=== PATIENT | female | born 1950 | race Caucasian/White ===

== ENCOUNTER → 2016-10-10 | Outpatient (CLI) | payer BC ==
[~2016-10-10] MED LIST: ALBU18002 INH; ASCA500 PO; ATOR-22 PO; CLB/200 PO; DILT120C68 PO; INDA1TAB3 PO; LEVO100T7 PO; LISI-461 PO; PRM625 PO; SYN150 PO
--- NOTE | 2016-10-10 14:32 | MAMMOGRAPHY REPORT ---
BILATERAL DIGITAL SCREENING MAMMOGRAM WITH CAD: 10/10/2016 CLINICAL HISTORY: Routine screening. TECHNIQUE: Bilateral CC and MLO views were obtained. Current study was also evaluated with a Compute r Aided Detection (CAD) system. COMPARISON: Comparison is made to exams dated: 10/09/2015 mammogram, 10/15/2012 mammogram, 09/20/2011 m ammogram, 09/15/2009 mammogram, 09/16/2010 mammogram - [facility], and 09/05/2008. BREAST COMPOSITION: The tissue of both breasts is heterogeneously dense, which may obscure small mas ses. FINDINGS: There are scattered stable benign coarse and round calcifications in the right breast. The parenchymal pattern is similar to prior mammograms. No developing mass, architectural distortion or cluster of suspicious microcalcifications is seen in either breast. IMPRESSION: ACR BI-RADS CATEGORY 2: BENIGN There is no mammographic evidence of malignancy. A 1 year screening mammogram is recommended. The pa tient will receive written notification of the results. Approximately 10% of breast cancers are not detected with mammography. A negative mammographic report should not delay biopsy if a clinically suggestive mass is present. Janee Villatoro M.D. ay/:10/10/2016 14:01:18 Auto Apprentice Mechanic: Micky BRIAN(R)(M), [facility] letter sent: Normal 1/2 BI-RADS Code: ACR BI-RADS Category 2: Benign
== END | disposition home or self-care (01) ==
LOC: C.MAMM 13:43
PROVIDERS: ATTEND Physician Assistant
DX: Z12.31 Encounter for screening mammogram for malignant neoplasm of breast (principal)

== ENCOUNTER → 2017-01-04 | Outpatient (CLI) | payer BC ==
[~2017-01-04] MED LIST changes: -ASCA500 PO; +ATROPINE SULFATE 0.1 MG/ML 5ML SYR ONE; +DOBUTamine HCL 12.5 MG/ML 20 ML VIAL ONE; +METOPROLOL TARTRATE 1 MG/ML VIAL ONE; -SYN150 PO
--- NOTE | 2017-01-04 13:21 | DOBUTAMINE ECHO ---
*NOTICE TO RECEIVING CONSTITUTION PARTY AGENCY This information is strictly Confidential and protected under [place] law. [place] law prohibits you from making any further disclosure of this information unless further disclosure is expressly permitted by the written consent of the person to whom it pertains or is authorized by law. A general authorization for the release of medical or other information is not sufficient for this purpose. Hospital accepts no responsibility if the information is made available to any other person, INCLUDING THE PATIENT. Interpretation Summary * Name: TIFFANY MA Study Date: 01/04/2017 09:25 AM BP: 142/72 mmHg * Patient Location: [facility] HR: 60 * : 1950 (M/d/yyyy) Gender: Female Height: 54 in * Age: 66 yrs Ethnicity: CA Weight: 170 lb * Ordering Physician: Stalin mR * Referring Physician: Stalin Rm * Performed By: Rhea Delong RCS * * Reason For Study: Pre-Op Clearance, HTN * BSA: 1.6 m2 * -- Conclusions -- * Mild aortic regurgitation. * There is mild mitral regurgitation. * Right ventricular systolic pressure is normal. * Diagnostic dobutamine echocardiogram without evidence of inducible ischemia * Left ventricular systolic function is normal. * Grade I diastolic dysfunction, (abnormal relaxation pattern). Procedure Details * DOBUTAMINE ECHO, CPT#[id number] * ECHO COLOR FLOW, CPT #[id number] * ECHO DOPPLER, CPT #[id number] Left Ventricular Findings with Stress * Diagnostic dobutamine echocardiogram without evidence of inducible ischemia Left Ventricle * The left ventricle is normal in size. * There is normal left ventricular wall thickness. * Ejection Fraction = 65-70%. * Left ventricular systolic function is normal. * Grade I diastolic dysfunction, (abnormal relaxation pattern). * The left ventricular wall motion is normal. Right Ventricle * The right ventricle is normal in size and function. Atria * The left atrial size is normal. * Right atrial size is normal. * Cannot exclude PFO Mitral Valve * The mitral valve anatomy is normal. * There is mild mitral regurgitation. Tricuspid Valve * The tricuspid valve is not well visualized, but is grossly normal. * There is trace tricuspid regurgitation. * Right ventricular systolic pressure is normal. Aortic Valve * The aortic valve is normal in structure and function. * The aortic valve is trileaflet. * No hemodynamically significant valvular aortic stenosis. * Mild aortic regurgitation. Great Vessels * The aortic root is normal size. Pericardium * There is no pericardial effusion. Stress Parameters * Baseline EKG demonstrated normal sinus rhythm with incomplete right bundle branch block * Stress ECG: No ST changes. No arrhythmias. * The stress portion of this study was personally supervised by the undersigned interpreting physician. * Rest heart rate was '60' BPM. * Rest blood pressure was '142/72' * Maximum heart rate achieved was 146 bpm. * Maximum heart rate was 93 % of maximum age-predicted heart rate. * Maximum blood pressure was '156/64' * Maximum Dobutamine infusion rate was '50' mcg/kg/min. * A total of .5 mg of intravenous Atropine was used to supplement Dobutamine for heart rate response. * Dobutamine infusion was terminated due to achieving target heart rate * A total of 5 mg of IV Metoprolol was administered to reverse Dobutamine-induced tachycardia. * The patient did not exhibit any symptoms during drug infusion. * Normal blood pressure response to exercise. Left Ventricular Findings with Stress * The patient reported symptoms of mild dizziness during peak dobutamine infusion Baseline echocardiographic images demonstrated normal LV systolic function At peak dobutamine infusion there was normal augmentation without development of wall motion abnormalities There were no significant EKG changes during today's test Normal heart rate and blood pressure response to dobutamine infusion MMode 2D Measurements and Calculations IVSd 0.91 cm IVSs 1.3 cm LVIDd 5.1 cm LVIDs 3.2 cm LVPWd 0.83 cm LVPWs 1.3 cm IVS/LVPW 1.1 FS 37.2 % EDV(Teich) 123.8 ml ESV(Teich) 41.1 ml EF(Teich) 66.8 % EDV(cubed) 132.7 ml ESV(cubed) 32.9 ml EF(cubed) 75.2 % % IVS thick 38.9 % % LVPW thick 55.2 % LV mass(C)d 156.6 grams LV mass(C)dI 97.0 grams/m\S\2 LV mass(C)s 132.0 grams LV mass(C)sI 81.8 grams/m\S\2 SV(Teich) 82.7 ml SI(Teich) 51.3 ml/m\S\2 SV(cubed) 99.8 ml SI(cubed) 61.8 ml/m\S\2 Ao root diam 3.3 cm Ao root area 8.6 cm\S\2 ACS 1.6 cm LA dimension 3.9 cm asc Aorta Diam 3.6 cm LA/Ao 1.2 EDV(MOD-sp4) 107.4 ml ESV(MOD-sp4) 33.5 ml EF(MOD-sp4) 68.8 % EDV(MOD-sp2) 128.5 ml ESV(MOD-sp2) 41.7 ml EF(MOD-sp2) 67.6 % SV(MOD-sp4) 73.9 ml SI(MOD-sp4) 45.8 ml/m\S\2 SV(MOD-sp2) 86.9 ml SI(MOD-sp2) 53.8 ml/m\S\2 Doppler Measurements and Calculations MV E max sridhar 67.9 cm/sec MV A max sridhar 72.1 cm/sec MV E/A 0.94 MV P1/2t max sridhar 77.3 cm/sec MV P1/2t 71.7 msec MVA(P1/2t) 3.1 cm\S\2 MV dec slope 315.8 cm/sec\S\2 MV dec time 0.26 sec Ao V2 max 98.1 cm/sec Ao max PG 3.9 mmHg Ao max PG (full) -0.18 mmHg AI max sridhar 397.1 cm/sec AI max PG 63.2 mmHg AI dec slope 148.4 cm/sec\S\2 AI P1/2t 784.1 msec LV V1 max PG 4.0 mmHg LV V1 max 100.4 cm/sec PA V2 max 77.7 cm/sec PA max PG 2.4 mmHg TR max sridhar 215.5 cm/sec
== END | disposition home or self-care (01) ==
LOC: C.CPL 09:18
PROVIDERS: ATTEND Internal Medicine
DX: I10 Essential (primary) hypertension (principal)

== ENCOUNTER 2017-01-10 10:36 | Inpatient (IN) | payer BC, OTHER ==
--- NOTE | 2016-12-05 14:38 | PAT Medication Instructions ---
Service Date Dec 05, 2016. Current Home Medication List Albuterol Sulfate (Proair Respiclick), 2 PUFF INH QID PRN for Shortness of Breath Atorvastatin (Lipitor), 20 MG PO HS Celecoxib (CeleBREX), 200 MG PO BID Diltiazem Hcl Ext Rel (Tiazac), 120 MG PO QAM Estrogens, Conjugated (Premarin), 0.625 MG PO Q2D Indapamide (Lozol), 1.25 MG PO QAM Levothyroxine Sodium (Levothyroxine Sodium), 1 TAB PO QAM Lisinopril (Zestril), 10 MG PO QAM Medication Instructions For Your Scheduled Surgery - Hold the following medications the morning of surgery: Lisinopril (Zestril), 10 MG PO QAM Indapamide (Lozol), 1.25 MG PO QAM - Take the following medications the morning of surgery with a sip of water: Levothyroxine Sodium (Levothyroxine Sodium), 1 TAB PO QAM Estrogens, Conjugated (Premarin), 0.625 MG PO Q2D (okay to continue unless otherwise directed by surgeon) Diltiazem Hcl Ext Rel (Tiazac), 120 MG PO QAM Celecoxib (CeleBREX), 200 MG PO BID (okay per surgeon) Albuterol Sulfate (Proair Respiclick), 2 PUFF INH QID PRN for Shortness of Breath (if needed) - Take the following medications as scheduled the night before surgery: Celecoxib (CeleBREX), 200 MG PO BID (okay per surgeon) Albuterol Sulfate (Proair Respiclick), 2 PUFF INH QID PRN for Shortness of Breath (if needed) Atorvastatin (Lipitor), 20 MG PO HS If you have any questions please call us at [phone] or [phone] or [phone]
--- NOTE | 2017-01-07 19:55 | HISTORY & PHYSICAL EXAMINATION ---
DATE OF ADMISSION: 01/10/2017 CHIEF COMPLAINT: Left knee pain and discomfort. HISTORY OF PRESENT ILLNESS: A 66-year-old female who presents for surgical treatment of her left knee. She has got a long history of left knee pain and discomfort. She had her right knee replaced by Dr. Ariza back in January of 2008. She had a very rough course postoperatively that required manipulation. She has done pretty well since then, but has off left knee replacement as a result. The patient has become more unbearable. She has been through extensive conservative treatment. She has pain all the time. The more she walks, the more it hurts. The pain is mostly on the medial side. Temporary relief from injections only. She would like to proceed with left knee replacement. PAST MEDICAL HISTORY: Significant for: 1. Hypertension. 2. Elevated cholesterol. 3. Hypothyroidism. 4. Mild obesity. PAST SURGICAL HISTORY: Include: 1. Right knee replacement in 02/06/2008. 2. Jaw surgery. 3. Bunion surgery. 4. Hysterectomy. 5. Cholecystectomy. ALLERGIES: None. CURRENT MEDICINES: 1. Celebrex 200 mg twice a day. 2. Indapamide 1.25 mg once a day. 3. Lisinopril 10 mg a day. 4. Levothyroxine 100 mcg a day. 5. Diltiazem 120 mg a day. 6. Atorvastatin 20 mg. 7. Premarin 0.625 mg once a day. SOCIAL HISTORY: A 66-year-old female. Does not smoke. FAMILY HISTORY: Negative for diabetes, heart disease or blood clots. REVIEW OF SYSTEMS: Negative for diabetes, neurologic problems, vascular problems, bleeding disorders. Denies any chest pain or shortness of breath. No history of DVT or PE. PHYSICAL EXAMINATION: GENERAL: Reveals a healthy pleasant, middle-aged female. She looks to be in pretty good health. HEENT: Benign. NECK: Supple. No lymphadenopathy. LUNGS: Clear to auscultation. HEART: Has a regular rate and rhythm. ABDOMEN: Soft, nontender, nondistended. EXTREMITIES: Grossly neurovascularly intact except as follows: Examination of the left knee reveals the patient walks with a slight bit of a limp. She has got varus alignment to her knee. She does walk with a varus thrust. She has got bony hypertrophy medially. Range of motion is 5-10 degrees short of full extension to 120 degrees of flexion. No instability. No pain with hip motion. IMAGING DATA: X-rays of the left knee were reviewed. It shows advanced left knee DJD. She has got near complete loss of medial joint space. She has got osteophytes off the medial femoral condyle and medial tibial plateau. ASSESSMENT: A 66-year-old female 9 years out from right knee replacement with advanced left knee degenerative joint disease. She would like to proceed with left knee replacement. She has failed conservative care. PLAN: We will take her to the operating room and do a left total knee replacement. The risks and benefits of this procedure were explained to the patient including but not limited to DVT, PE, , infection, neurologic injury, vascular injury, bleeding problems, pain, limited range, failure to relieve her symptoms, incomplete relief of symptoms, need for further surgery in the future, fracture, leg length inequality, nerve palsy, etc. The patient understands and desires to proceed. Informed consent was obtained. As far as discharge plans, she is planning to be discharged to home using [facility] home health program. She will then go to [facility]. We did talk about holding the lisinopril the morning of surgery. I will see her back 2 weeks postop. WES
[2017-01-10] VITALS (8 sets, daily range): BP systolic 98–162; BP diastolic 67–95; PULSE 44–73; TEMP 36.2–36.6; O2SAT 86–98; Ht 162.6 cm; Wt 79.0 kg
[~2017-01-10] VITALS: Ht 162.6 cm; Wt 79.0 kg
[~2017-01-10 10:36] MED LIST changes: +ACETAMINOPHEN 500 MG TAB PO SCH; +ATROPINE SULFATE 0.1 MG/ML 5ML SYR IV PRN; -ATROPINE SULFATE 0.1 MG/ML 5ML SYR ONE; +BUPIVACAINE 0.25% 30 ML VIAL ONE; +BUPIVACAINE 0.5 % 5 MG/1 ML PF 10ML VIAL ONE; +BUPIVACAINE LIPOSOME 266 MG, BUPIVACAINE/EPINEPHRINE INJ 50 ML, SODIUM CHLORIDE 0.9% PF... INFIL SCH; +CEFAZOLIN 2000MG IV PUSH 10 ML IV SCH; -DOBUTamine HCL 12.5 MG/ML 20 ML VIAL ONE; +EpHEDrine SULFATE INJ 50 MG/ML AMP IV PRN; +FAMOTIDINE 20 MG TAB PO SCH; +FENTANYL CITRATE INJ 50 MCG/1 ML 2 ML VIAL IV PRN; +GABAPENTIN 300 MG CAP PO SCH; +HYDROmorphone INJ 1 MG/ML SYR IV PRN; +LABETALOL HCL IV 5 MG/ML 20ML IV PRN; +LACTATED RINGER'S 1000ML 1,000 ML IV SCH; +LACTATED RINGER'S 1000ML 500 ML IV ONE; +LACTATED RINGER'S 1000ML IV SCH; +MEPERIDINE HCL 25 MG/ML CARP IV PRN; +METOCLOPRAMIDE HCL 10 MG TAB PO SCH; -METOPROLOL TARTRATE 1 MG/ML VIAL ONE; +ONDANSETRON INJ 2 MG/ML 2 ML VIAL IV PRN; +SCOPOLAMINE 1.5 MG TDSY TD SCH; +TRAMADOL HCL 50 MG TAB PO SCH; +TRANEXAMIC ACID INJ 1,000 MG in SYRINGE 0 ML IV SCH
--- NOTE | 2017-01-10 11:09 | History & Physical Bridge Note ---
H&P Re-Evaluation Bridge Note: I have examined the patient, reviewed the History & Physical and in the interval since the performance of the History & Physical I have noted the following changes of clinical significance: No changes noted
[2017-01-10] MEDS ORDERED: BUPIVACAINE/EPINEPHRINE 0.25% 1:200,000 30 ML VIAL ONE (12:45)
[2017-01-10] MEDS ORDERED: SODIUM CHLORIDE 0.9% PF 50 ML VIAL ONE (12:45)
[2017-01-10] MEDS ORDERED: BACITRACIN 50000 UNIT VIAL ONE (12:45)
[2017-01-10] MEDS ORDERED: BUPIVACAINE LIPOSOME 1/3% 266 MG/20 ML VIAL INFIL ONE (12:45)
[2017-01-10] MEDS ORDERED: MIDAZOLAM HCL 1 MG/ML 2ML VIAL ONE (12:51)
[2017-01-10] MEDS ORDERED: FENTANYL CITRATE INJ 50 MCG/1 ML 2 ML VIAL ONE (12:52)
[2017-01-10] MEDS ORDERED: PROPOFOL IV EMULSION 10 MG/ML 20 ML VIAL IV ONE (13:50)
--- NOTE | 2017-01-10 15:17 | [facility] Post Operative Brief Note ---
Immediate Operative Summary Operative Date Jan 10, 2017. Pre-Operative Diagnosis Advanced Left Knee Degenerative Joint Disease Post-Operative Diagnosis Same as pre-operative diagnosis Procedure(s) Performed Left Total Knee Arthroplasty Surgeon Dr. Bakari Maloney Tool Mechanic Surgeon(s) Luke Lucas PA-C Estimated Blood Loss 50mL Findings Left Knee DJD Fluids (cc crystalloids) 1500 cc Specimens Permanent: A. Left Knee bone and tissue Drains None Anesthesia Spinal Complication(s) None Disposition Recovery Room / PACU
[2017-01-10] MEDS ORDERED: ZOLPIDEM TARTRATE 5 MG TAB PO PRN (15:30)
[2017-01-10] MEDS ORDERED: BISACODYL 10 MG SUPP PR PRN (15:30)
[2017-01-10] MEDS ORDERED: MAGNESIUM HYDROXIDE SUSP 30 ML UDC PO PRN (15:30)
[2017-01-10] MEDS ORDERED: HYDROmorphone INJ 0.5 MG/0.5 ML SYR IV PRN (15:30)
[2017-01-10] MEDS ORDERED: METOCLOPRAMIDE HCL INJ 5 MG/ML 2 ML VIAL IV PRN (15:30)
[2017-01-10] MEDS ORDERED: SILVER SULFADIAZINE 1% CR 50 GM JAR EXT PRN (15:30)
[2017-01-10] MEDS ORDERED: TAMSULOSIN HCL 0.4 MG CAP PO PRN (15:30)
[2017-01-10] MEDS ORDERED: ALUMINUM/MAGNESIUM/SIMETH (MAALOX MAX) 30 ML UDC PO PRN (15:30)
[2017-01-10] MEDS ORDERED: DiphenhydrAMINE HCL 50 MG/ML VIAL IV PRN (15:30)
--- NOTE | 2017-01-10 15:35 | Anesthesiology Progress Note ---
Anesthesia Post Op Note Date & Time Jan 10, 2017 at 15:35 Vital Signs Pain Intensity: 1 Vital Signs Past 12 Hours Date Time Temp Pulse Resp B/P (MAP) Pulse Ox O2 Delivery O2 Flow Rate FiO2 01/10/17 11:03 36.5 73 18 162/95 (117) 97 Room Air Notes Mental Status: alert / awake / arousable, participated in evaluation Pt Amnestic to Procedure: Yes Nausea / Vomiting: adequately controlled Pain: adequately controlled Airway Patency, RR, SpO2: stable & adequate BP & HR: stable & adequate Hydration State: stable & adequate Neuraxial Anesthesia: was administered, sensory block is resolving Anesthetic Complications: no major complications apparent
--- NOTE | 2017-01-10 15:49 | DIAGNOSTIC IMAGING REPORT ---
LEFT KNEE 2 VIEWS History: Left total knee arthroplasty. Degenerative arthritis. Postop. FINDINGS: The patient is status post a left total knee arthroplasty. The hardware is intact. No fracture or dislocation. Skin lorri are in place. IMPRESSION: Left total knee arthroplasty. No evidence for hardware complication. Electronically signed by: Chandler Black M.D. 01/10/2017 3:48 PM Dictated Date/Time: 01/10/2017 3:47 PM
[2017-01-10] MEDS: CHECK SCOPOLAMINE PATCH PLACEMENT SCH ×2 (16:00→23:52)
[2017-01-10] MEDS ORDERED: ALBUTEROL HFA INHALER 18 GM INH PRN (17:15)
--- NOTE | 2017-01-10 17:49 | OPERATIVE REPORT ---
DATE OF OPERATION: 01/10/2017 SURGEON: Bakari Maloney MD SUGAR COATING HAND: MARY CARMEN Fishman PREOPERATIVE DIAGNOSIS: Left knee degenerative joint disease. POSTOPERATIVE DIAGNOSIS: Same. PROCEDURE PERFORMED: Left cemented posterior stabilized total knee arthroplasty. COMPLICATIONS: None. ESTIMATED BLOOD LOSS: 50 mL. FLUID REPLACEMENT: 1500 mL crystalloid fluid replacement. TOURNIQUET TIME: 58 minutes at 300 mmHg. ANESTHESIA: Spinal with adductor canal block. DRAINS: None. SPECIMENS: Left knee sent for pathology. OPERATIVE INDICATIONS: The patient is a 66-year-old female who has had a long history of knee problems. She underwent a right knee replacement about 9 years ago. She really struggled through this but has done pretty well over time. She has had a long history of left knee pain over that same period of time. However, due to the previous poor experience, she put knee surgery off. She has been through extensive conservative treatment without adequate relief. She elected to proceed with total knee arthroplasty. OPERATIVE FINDINGS: Operative findings revealed advanced left knee DJD. She had extensive grade 4 changes of the medial femoral condyle and medial tibial plateau with eburnation on both areas. She had a varus deformity to her knee. She had a 10 degree flexion contracture. She had a moderate to large effusion. OPERATIVE IMPLANTS: Operative implants consisted of: 1. A Biomet Vanguard size 65 left posterior stabilized femoral component. 2. A Biomet size 67 tibial tray. 3. A 10 mm posterior stabilized polyethylene insert. 4. A 31 x 8 all poly patella. OPERATIVE PROCEDURE: The patient taken to the operating room, identified and placed on the operating table in supine position. All contact areas were appropriately padded. IV antibiotics were provided by the anesthesia team. A spinal anesthetic and adductor canal block had been provided in the holding area. Barron catheter was placed in sterile fashion. The left thigh tourniquet was then placed and left lower extremity was then prepped and draped in the usual sterile fashion. The left leg was elevated and exsanguinated with Esmarch and tourniquet was placed at 300 mmHg. An anterior approach of the left knee was then performed through a longitudinal incision centered over the patella. Sharp dissection was carried through the subcutaneous tissues down to the level of the extensor mechanism. A medial parapatellar arthrotomy incision was made. Some subperiosteal dissection was carried out medially. The fat pad was resected from beneath the patellar tendon. The lateral patellofemoral ligament was released. The patella was everted and knee was flexed. The osteophytes were taken off the posterior aspect of the femur. The ACL and PCL were released. The tibia was subluxated anteriorly. The external tibial alignment jig was then placed in the anterior face of the tibia and adjusted 14 mm medially. Proximal tibial cut was made to remove about 2 mm of bone from the most deficient aspect of the medial tibial plateau. Some osteophytes were taken off medial and posteromedially. Tibia was sized to a size 67. Attention was then drawn to the femur. The distal femur was entered with a sharp drill bit. Intramedullary canal was suctioned. A left 5 degree valgus cutting guide was placed. Distal femoral cutting block was pinned in place. Distal femoral cut was made to take an additional 3 mm of bone off the distal femur. The femur was then sized to a size 65. We did downsize this slightly. The AP cutting block was pinned parallel to the epicondylar axis, which was 4 degrees of external rotation. The anterior cut, anterior chamfer, posterior cut, posterior chamfer cuts were made. Box cutting guide was placed and adjusted slight lateral and the box cut was made. There was just a little bit of overhang laterally. The tibia subluxated anteriorly. The tibial tray was positioned and the drill and stem punch were used to create defect in proximal tibia for the tibial tray. The knee was then trialed and the 10 mm insert fit most appropriately. Attention was then drawn to the patella. The patella was cleaned of all soft tissues. Patella thickness measured 21 mm in thickness and was cut down to 13. It was sized to a size 31 patella. Lug holes were drilled for the 31 patella. Lateral osteophyte was removed. Patella button was placed. Knee was taken through range of motion and the patella tracked nicely with no thumbs test. Attention was then drawn toward placement of permanent components. All trial components were removed. Bone plug was placed in the distal femur to limit blood loss. A double batch of Palacos G cement was mixed. A left size 65 posterior stabilized femoral component, size 67 tibial tray, a 10 mm posterior stabilized polyethylene insert, and a 31 x 8 all poly patella were then cemented in place. Knee was brought out into full extension until cement hardened. A final cement check was then performed. Pericapsular tissues were injected with a total of 100 mL of a combination of 20 mL of Exparel, 30 mL of normal saline, and 50 mL of 0.25% Marcaine with epinephrine. The patient did receive 1 gram of tranexamic acid. The tourniquet was then let down for final tourniquet time of 58 minutes. Hemostasis was assured with use of electrocautery. The wound was once again irrigated. The extensor mechanism was then closed with a combination of #1 PDS suture and #1 Vicryl suture in a [id number] fashion. The extensor mechanism was checked and found to be intact. The subcutaneous tissues were then closed with 2-0 Dexon suture in a buried interrupted fashion. Skin was closed with skin lorri. Leg was then cleaned and dried and a sterile dressing of Xeroform, 4 x 4, sterile cast padding and Mt bandage were applied. The patient then transferred to the recovery room in stable condition. The patient tolerated the procedure with no complications. All needle and sponge counts were correct at the end of the operation. I attest to the content of the Intraoperative Record and any orders documented therein. Any exceptions are noted below. [id number]
[2017-01-10] MEDS: D5W AND 1/2NSS + 20MEQ KCL 1,000 ML IV SCH (17:54)
[2017-01-10] MEDS: FERROUS GLUCONATE 324 MG TAB PO SCH (17:55)
[2017-01-10] MEDS: KETOROLAC TROMETHAMINE 30 MG/ML VIAL IV. SCH ×2 (17:55→23:53)
[2017-01-10] MEDS: ACETAMINOPHEN 500 MG TAB PO SCH (17:56)
[2017-01-10] MEDS ORDERED: TRANEXAMIC ACID INJ 1,000 MG in SODIUM CHLORIDE 0.9% 100ML 100 ML IV SCH (19:30)
[2017-01-10] MEDS: ATORVASTATIN 20 MG TAB PO SCH (21:04)
[2017-01-10] MEDS: SENNA 8.6 MG TAB PO SCH (21:04)
[2017-01-10] MEDS: ASPIRIN 325 MG ECTAB PO SCH (21:04)
[2017-01-10] MEDS: DOCUSATE SODIUM 100 MG CAP PO SCH (21:04)
[2017-01-10] MEDS: TAPENTADOL ER 50 MG TABCR PO SCH (21:12)
[2017-01-10] MEDS: CEFAZOLIN IV 1,000 MG in SYRINGE 0 ML IV SCH (21:58)
[2017-01-11] MEDS: OXYCODONE HCL IR 5 MG TAB (IMMEDIATE RELEASE) PO PRN ×3 (02:28→14:37)
[2017-01-11] MEDS: D5W AND 1/2NSS + 20MEQ KCL 1,000 ML IV SCH ×2 (02:40→13:02)
[2017-01-11 04:20] VITALS: BP 111/66; PULSE 60; TEMP 36.9; O2SAT 94
[2017-01-11] MEDS: LEVOTHYROXINE 100 MCG TAB PO SCH (05:48)
[2017-01-11] MEDS: KETOROLAC TROMETHAMINE 30 MG/ML VIAL IV. SCH ×3 (05:48→18:33)
[2017-01-11] MEDS: ACETAMINOPHEN 500 MG TAB PO SCH ×3 (05:49→21:04)
[2017-01-11] MEDS: CEFAZOLIN IV 1,000 MG in SYRINGE 0 ML IV SCH (05:49)
[2017-01-11 07:30] VITALS: BP 123/77; PULSE 62; TEMP 36.7; O2SAT 92
[2017-01-11] MEDS: CHECK SCOPOLAMINE PATCH PLACEMENT SCH ×2 (07:49→16:00)
[2017-01-11 08:58] LABS: MEAN CELL VOLUME 89.5 fL (80-100); MEAN CORPUSCULAR HEMOGLOBIN 28.4 pg (25-34); MEAN CORPUSCULAR HGB CONC 31.8 g/dl (32-36); MEAN PLATELET VOLUME 9.8 fL (7.4-10.4); PLATELET COUNT 234 K/uL (130-400); RED BLOOD COUNT 4.47 M/uL (4.2-5.4); WHITE BLOOD COUNT 8.97 K/uL (4.8-10.8)
[2017-01-11 09:01] LABS: BUN/CREATININE RATIO 18.2 (10-20); CALCIUM 8.6 mg/dl (8.5-10.1); CREATININE 0.88 mg/dl (0.60-1.20); POTASSIUM 3.8 mmol/L (3.5-5.1)
[2017-01-11] MEDS: DOCUSATE SODIUM 100 MG CAP PO SCH ×2 (09:34→21:03)
[2017-01-11] MEDS: FERROUS GLUCONATE 324 MG TAB PO SCH ×3 (09:34→18:32)
[2017-01-11] MEDS: DILTIAZEM HCL 120 MG EXT REL CAP PO SCH (09:35)
[2017-01-11] MEDS: PANTOprazole SOD 40 MG TAB PO SCH (09:35)
[2017-01-11] MEDS: ASPIRIN 325 MG ECTAB PO SCH ×2 (09:35→21:03)
[2017-01-11] MEDS: LISINOPRIL 10 MG TAB PO SCH (09:36)
[2017-01-11] MEDS: INDAPAMIDE 1.25 MG TAB PO SCH (09:36)
[2017-01-11] MEDS: MULTIVITAMIN TAB PO SCH (09:36)
[2017-01-11] MEDS: TAPENTADOL ER 50 MG TABCR PO SCH ×2 (09:47→21:03)
[2017-01-11] MEDS ORDERED: MORP-157 PO (10:41)
[2017-01-11] MEDS ORDERED: ASPEC325 PO (10:41)
[2017-01-11] MEDS ORDERED: RXC5 PO (10:41)
[2017-01-11] MEDS ORDERED: ACET-24 PO (10:41)
--- NOTE | 2017-01-11 10:43 | Discharge Instructions ---
Discharge Instructions Date of Service Jan 11, 2017. Admission Reason for Admission: Left Knee Degenerative Joint Disease Discharge Discharge Diagnosis / Problem: Left Knee Replacement Discharge Goals Goal(s): Decrease discomfort, Improve function, Increase independence, Improve disease control, Therapeutic intervention Activity Recommendations Activity Limitations: per Instructions/Follow-up section Weightbearing Status: Left weightbearing . Instructions / Follow-Up Instructions / Follow-Up ACTIVITY RECOMMENDATIONS: Physical Therapy: * You will go to physical therapy three times each week for four to six weeks after your surgery in order to regain your knee range of motion and to retrain your knee to work properly. * It is just as important to make sure you are getting your knee perfectly straight as it is to regain your knee bend. * Taking a pain pill an hour before therapy can help you have a more productive and comfortable therapy session. Home Exercise: * You were shown a series of exercises (heel props, heel slides, etc.) in the hospital. Do these exercises three to four times each day including the exercises you were shown in physical therapy. Walking: * Get up and walk several times each day. For the first four weeks, try not to stand or walk for more than one hour at a time. If you do stand or walk for more than one hour, you will not hurt anything, but your knee and leg will likely swell. * As you feel comfortable, you may change from the walker or crutches to a cane and then to independent walking. MEDICATIONS: New Medicine: * You will likely be taking one or more of these medications: 1. MS Contin - A long-acting pain medication. Take 1 tablet twice a day for the first ten days to decrease your baseline level of pain. 2. Oxycodone - A quick and shorter-acting pain medication. Take one to two tablets every four to six hours to lessen your pain. 3. Aspirin - Thins your blood to lessen the chance of forming a blood clot. * The most common side effects of pain medicine and iron are nausea and constipation. If nausea or constipation is too much of a problem or if you have any questions about your new medicines or doses, call [facility] at . We will try to help you manage these issues. VERY IMPORTANT TO READ AND REVIEW" Pain: * The immediate post-operative period after knee replacement surgery is often quite painful. * You are given a prescription for pain medicine. You should take it, as directed, when you need it, especially before physical therapy and before going to bed. Pain that interferes with sleep is very common and can last several months. * You will likely need pain medicine for the first four to six weeks. It will not stop all of the pain. The pain will lessen and as you feel better, you may change to milder pain medicine such as Tylenol. * The most common side effects of pain medicine are nausea and constipation, so don't take more than you need. SPECIAL CARE INSTRUCTIONS: TEDs/Elastic Stockings: * The white elastic stockings help limit swelling and prevent blood clots from forming in your legs. The more you wear them, the more they work. * Wear them for six weeks after knee replacement surgery and four weeks after partial knee replacement. Prevention of Infection: * Take antibiotics one hour before any dental cleaning, dental work, urological procedure, gastrointestinal procedure or any invasive surgery in order to prevent your new joint from getting infected. * You may get the antibiotics from the doctor performing the procedure or you may call our office at before and we will call in a prescription to the pharmacy of your choice. Things to Watch For: * Drainage from the incision site that occurs more than one week after your surgery. * Severely increased knee/leg pain or swelling. * Increased redness at the incision site. * Fever above 102 degrees Fahrenheit. * Unusual chest pain or shortness of breath. * Unusual pain or burning with urination. Call [facility] at with any of the above problems or if you have any questions about your medicines or recovery. FOLLOW UP VISIT: Make an appointment to see your doctor for approximately two weeks after surgery for a progress check and staple removal by calling the office at . Current Hospital Diet Patient's current hospital diet: Regular Diet Discharge Diet Recommended Diet: Regular Diet Procedures Procedures Performed: Left Total Knee Arthroplasty Pending Studies Studies pending at discharge: no Medical Emergencies . Who to Call and When: Medical Emergencies: If at any time you feel your situation is an emergency, please call [phone] immediately. . Non-Emergent Contact Non-Emergency issues call your: Surgeon . "Provider Documentation" section prepared by Bakari Maloney. . VTE Core Measure Inpt VTE Proph given/why not?: Other Anticoagulation, T.E.D. Stockings, SCD's
--- NOTE | 2017-01-11 10:48 | PROGRESS NOTE ---
DATE: 01/11/2017 SUBJECTIVE: A 66-year-old female postop day #1 from a left knee replacement. She is doing pretty well. Pain is controlled. Denies any chest pain or shortness of breath. Not feeling dizzy or lightheaded. OBJECTIVE: VITAL SIGNS: Temperature 36.7. Vital signs stable. GENERAL: Physical examination reveals a healthy pleasant, middle-aged female. She is sitting up in her bed, at the edge of her bed and talking to the occupational therapist and looks pretty comfortable. EXTREMITIES: Examination of the left leg reveals the dressing to be clean, dry and intact. Leg is well aligned. She can dorsiflex and plantarflex her foot appropriately. She is neurologically intact. LABORATORY DATA: Hemoglobin is 12.7. Hematocrit 40.0. Electrolytes are stable. ASSESSMENT: A 66-year-old female postop day #1 from a left knee replacement, doing pretty well. Pain is controlled. She is neurologically intact. PLAN: 1. DVT prophylaxis including thigh-high TEDs, SCDs, and aspirin twice a day. 2. PT/OT. Weightbear as tolerated. Left total knee protocol. 3. Pain control. Doing pretty well with current pain regimen. 4. Disposition: She is planning to be discharged to home. She is interested in doing home health. We will get social services director to see her to help arrange this. WES
[2017-01-11 12:32] VITALS: BP 112/72; PULSE 63; TEMP 37.2; O2SAT 95
[2017-01-11] MEDS: ONDANSETRON INJ 2 MG/ML 2 ML VIAL IV PRN ×2 (13:00→19:06)
[2017-01-11 15:28] VITALS: BP 128/76; PULSE 59; TEMP 36.7; O2SAT 91
[2017-01-11] MEDS: ATORVASTATIN 20 MG TAB PO SCH (21:03)
[2017-01-11] MEDS: SENNA 8.6 MG TAB PO SCH (21:58)
[2017-01-11 23:19] VITALS: BP 112/69; PULSE 62; TEMP 36.8; O2SAT 93
[2017-01-12] MEDS: KETOROLAC TROMETHAMINE 30 MG/ML VIAL IV. SCH ×2 (00:28→05:47)
[2017-01-12] MEDS: CHECK SCOPOLAMINE PATCH PLACEMENT SCH ×2 (00:29→06:55)
[2017-01-12] MEDS: ONDANSETRON INJ 2 MG/ML 2 ML VIAL IV PRN (00:55)
[2017-01-12] MEDS: ACETAMINOPHEN 500 MG TAB PO SCH (05:47)
[2017-01-12] MEDS: LEVOTHYROXINE 100 MCG TAB PO SCH (05:47)
[2017-01-12] MEDS ORDERED: NURSING VERBAL MED ORDER ONE (07:00)
[2017-01-12 07:15] VITALS: BP 101/64; PULSE 75; TEMP 37; O2SAT 93
--- NOTE | 2017-01-12 07:34 | PROGRESS NOTE ---
DATE: 01/12/2017 DATE: 01/12/2017 SUBJECTIVE: A 66-year-old female postop day 2 from left knee replacement. She is doing pretty well. Pain has been controlled. Denies any chest pain or shortness of breath. Not feeling dizzy or lightheaded. OBJECTIVE: VITAL SIGNS: Temperature 36.8. Vital signs stable. PHYSICAL EXAMINATION: GENERAL: Reveals a pleasant, middle-aged female. She is lying in bed, looks pretty comfortable. EXTREMITIES: Examination of the left leg reveals the dressing to be clean, dry and intact. Leg is well aligned. She can dorsiflex and plantarflex her foot appropriately. She can do a pretty good straight leg raise. ASSESSMENT: A 66-year-old female postop day 2 from left knee replacement, doing well. Pain is reasonably well controlled. She is neurologically intact. PLAN: 1. DVT prophylaxis including thigh-high TEDs, SCDs, and aspirin twice a day. 2. PT/OT. Weightbearing as tolerated. Left total knee protocol. 3. Pain control. Doing pretty well with current pain regimen. 4. Disposition. Plan to discharge to home with some home health later today.
[2017-01-12 07:46] VITALS: BP 101/64; PULSE 75; TEMP 37; O2SAT 93
[2017-01-12] MEDS: FERROUS GLUCONATE 324 MG TAB PO SCH (08:30)
[2017-01-12] MEDS: PANTOprazole SOD 40 MG TAB PO SCH (08:35)
[2017-01-12] MEDS: MULTIVITAMIN TAB PO SCH (08:36)
[2017-01-12] MEDS: INDAPAMIDE 1.25 MG TAB PO SCH (08:36)
[2017-01-12] MEDS: LISINOPRIL 10 MG TAB PO SCH (08:36)
[2017-01-12] MEDS: TAPENTADOL ER 50 MG TABCR PO SCH (08:36)
[2017-01-12] MEDS: DILTIAZEM HCL 120 MG EXT REL CAP PO SCH (08:37)
[2017-01-12] MEDS: DOCUSATE SODIUM 100 MG CAP PO SCH (09:53)
[2017-01-12] MEDS: ASPIRIN 325 MG ECTAB PO SCH (09:53)
--- NOTE | 2017-01-17 14:14 | DISCHARGE SUMMARY ---
ADMITTING PHYSICIAN AND SURGEON: Dr. Maloney. ADMITTING DIAGNOSIS: Left knee degenerative joint disease. SURGERY PERFORMED: Left total knee arthroplasty. SECONDARY DIAGNOSES: Include hypertension, elevated cholesterol, hypothyroidism, and mild obesity. CONSULTS: None obtained. HISTORY AND PHYSICAL EXAMINATION: Well documented in the patient's chart. HOSPITAL COURSE: The patient was admitted on 01/10/2017 and underwent total knee arthroplasty. She tolerated the procedure well. There were no complications. She was transferred to the PACU postoperatively and later to the orthopedic floor for further care. She was given Ancef for antibiotic prophylaxis, LU stockings, SCDs and aspirin for DVT prophylaxis. Hemoglobin, hematocrit and vital signs were monitored during her hospital stay and remained stable, did not require any blood transfusions. There were no complications. By postoperative day #2, she was tolerating a regular diet. Pain was controlled with oral pain medicine. She was participating in physical therapy and had no signs or symptoms of deep vein thrombosis. On postop day #2, she was discharged home and set up with home health services. She was given printed discharge instructions including new prescriptions for strength Tylenol, aspirin 325 mg b.i.d., MS Contin and oxycodone. Continue her home medications, continue physical therapy, weightbearing as tolerated, LU stockings. Follow up in 10-12 days or sooner if there are any problems or concerns.
== END 2017-01-12 10:05 | disposition home health service (06) | DRG 470 ==
LOC: C.ACU 10:36 → C.MSW 11:30 → ENRESERV 15:34
PROVIDERS: ADMIT Orthopaedic Surgery Sports Medicine; ATTEND Orthopaedic Surgery Sports Medicine
PROC: 0SRD0J9 Replacement of Left Knee Joint with Synthetic Substitute, Cemented, Open Approach (ICD-10-PCS; principal; 2017-01-10 13:00)
DX: M17.12 Unilateral primary osteoarthritis, left knee (principal); I10 Essential (primary) hypertension; E78.00 Pure hypercholesterolemia, unspecified; E03.9 Hypothyroidism, unspecified; Z96.651 Presence of right artificial knee joint; Z79.890 Hormone replacement therapy; Z79.899 Other long term (current) drug therapy

== ENCOUNTER 2024-09-21 08:29 | Observation (INO) ==
--- NOTE | 2024-09-21 08:50 | Emergency Department Note ---
Impression & Plan Ureteral obstruction, left, Calculus of distal left ureter, HAZEL (acute kidney injury), Acute dehydration ED Provider Note Name: TIFFANY MA Age: 74 Sex: Female Arrives Via: Walk-In Informant: Patient ED Provider: Bruno Flores MD Chief Complaint: Flank pain Impression: As per impressions above Medical Decision Making: Pleasant 74-year-old female who was seen in the ER 3 days ago for left flank pain diagnosed with a 4 mm mid ureteral stone with some mild hydro-. Persistent if not worsening pain and now nausea and vomiting overnight unable to keep down fluids. Examination reveals patient quite dehydrated somewhat tachycardic. She was given IV fluids pain medications with significant improvement. Labs reveal an HAZEL. In the setting of worsening kidney function and inability to tolerate p.o. at home I think hospitalization warranted. Continued hydration and I did discuss with urology who are on board with plan for monitoring in the hospital and further interventions as needed. Hospitalist consulted for further management. Patient is not septic and do not feel she requires antibiotics at this time. Triage/Nursing Notes reviewed by Me External Chart Review by me: PCP note from 05/19/2024 reviewed discussing past medical history. Differential:Renal colic, UTI, appendicitis, diverticulitis, mesenteric ischemia, aortic pathology, infections, inflammatory bowel disease, PUD, biliary pathology, as well as other pathologies. Vital Signs: reviewed and remarkable for tachy Interventions: Normal saline bolus IV, Dilaudid IV, Zofran IV Labs:ED labs Reviewed by me and remarkable for elevated creatinine Consults:Discussed with [facility] hospitalist who will further evaluate and manage patient. Discussed with Dr. Evans of urology who notes they will follow along as inpatient. Plan: Disposition:Hospitalization. Condition: Fair History of Present Illness: 74-year-old female arrives for evaluation of intractable left flank pain. Patient was seen 3 days ago in the ER for left flank pain diagnosed with a 4 mm mid ureteral kidney stone with hydronephrosis. Since getting home she has had worsening pain, nausea, vomiting and inability to tolerate oral intake for the last 48 hours. She started noticing increasing blood in her urine as well. Denies any fevers, chills, syncope. Denies any urinary burning or frequency. Does not have other abdominal pain or other concerning signs or symptoms. She has no history of kidney stones. She had no inciting event that she recalls such as diarrhea, vomiting, dehydration prior to this. No significant family history of kidney stones. Patient states that she is getting a little lightheaded with standing. Past Medical History:See Below Home Medications:See Below Allergies: Ceftin and sulfa Vitals:Blood Pressure: 159/80, Pulse 106, RR 18, T 36.4C, O2 95% on RA Physical Exam: GENERAL: Patient is uncomfortable, dehydrated appearing and in moderate distress. RESPIRATORY: No dyspnea. Clear to auscultation and equal bilaterally. CARDIOVASCULAR: Tachy.No murmur appreciated. GASTROINTESTINAL: Abdomen soft, non-tender, no peritonitis. BACK: No midline tenderness, no CVA tenderness EXTREMITIES: Normal motion all extremities, no cyanosis, no edema. NEUROLOGIC: Alert and oriented. No focal neurologic deficits appreciated SKIN: No rash, no jaundice, no diaphoresis. PSYCH: Appropriate GCS: 15 ED Course: Times/Reassessments: Patient did require repeat dosing of pain and nausea medications but otherwise significantly improved with fluids and medications. Bruno Flores MD Past Med/Surg History Problem List (Updated 09/22/24 @ 07:38 by Bruno Flores MD) Acute dehydration (Acute) HAZEL (acute kidney injury) (Acute) Calculus of distal left ureter (Acute) Ureteral obstruction, left (Acute) Acute left flank pain (Acute) Kidney stone on left side (Acute) Spinal stenosis of lumbar region Diabetic retinopathy Obesity (BMI 30-39.9) Osteoarthritis (Chronic) Hypothyroidism (Chronic) Hypercholesterolemia (Chronic) Cervical radiculopathy at C8 (Chronic) Carpal tunnel syndrome of right wrist (Chronic) Gastroesophageal reflux disease (Chronic) Primary hypertension Vitamin D deficiency Osteopenia B12 deficiency Type 2 diabetes mellitus with obesity Medical History Type 2 diabetes mellitus with albuminuria Olecranon bursitis Surgical History S/P trigger finger release left trigger thumb, left middle finger S/P arthroscopy of right shoulder RCR S/P bunionectomy S/P knee replacement bilateral TKA S/P hysterectomy S/P cholecystectomy Family History Mother Diabetes Denies family history of Ovarian cancer Prostate cancer Breast cancer Lung cancer Colorectal cancer Social History Smoking Status: Never smoker Second Hand Exposure: No; Hx Alcohol Use: Yes Hx Substance Use: No Preferred Language: Occitan Visual Impairment: No Limitations Hearing Ability: Normal marital status: Current Living Situation: Spouse current occupational status: employed and retired 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, 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 Feels Safe at Home: Yes Childhood Exposure to Second-Hand Smoke: Yes caffeine: Yes Dental Care, Regularly: Yes Physical Activity Frequency: 3-4 Times per Week Seatbelt Use: always Sunscreen Use: Yes Allergies Allergies Allergy/AdvReac Type Severity Reaction Status Date / Time cefuroxime [From Ceftin] Allergy Unknown Verified 05/20/24 10:31 Home Meds Home Medications Medication Instructions Recorded Confirmed cholecalciferol (vitamin D3) 25 25 mcg PO DAILY 04/14/21 09/21/24 mcg (1,000 unit) capsule ascorbic acid (vitamin C) 500 mg 500 mg PO DAILY 05/19/22 09/21/24 tablet Previous Rx's Medication Instructions Recorded mecobalamin (vitamin B12) 1,000 1,000 mcg PO DAILY #30 tabs 07/14/21 mcg chewable tablet (B12 Active) albuterol sulfate 90 mcg/actuation 2 puff inhalation Q4H PRN 08/11/22 aerosol inhaler shortness of breath or wheezing #8.5 grams diltiazem HCl 240 mg capsule,24 240 mg PO DAILY #90 caps 01/01/24 hr,extended release metformin 500 mg tablet,extended 1,000 mg (2 x 500 mg) PO DAILY 01/01/24 release 24 hr #180 tabs pantoprazole 20 mg tablet,delayed 20 mg PO DAILY #90 tabs 01/01/24 release olmesartan 5 mg tablet 10 mg (2 x 5 mg) PO DAILY #180 tabs 06/11/24 atorvastatin 20 mg tablet 20 mg PO DAILY #90 tabs 06/13/24 indapamide 1.25 mg tablet 1.25 mg PO DAILY #90 tabs 06/13/24 levothyroxine 100 mcg tablet 100 mcg PO DAILY #90 tabs 07/09/24 dulaglutide 4.5 mg/0.5 mL 4.5 mg (0.5 mL) subcut Q7D #12 mL 07/18/24 subcutaneous pen injector celecoxib 200 mg capsule 200 mg PO BID PRN pain #180 caps 08/19/24 oxycodone 5 mg tablet 5 mg PO Q6H PRN pain #15 tabs 09/18/24 tamsulosin 0.4 mg capsule (Flomax) 0.4 mg PO HS #20 caps 09/18/24 Results & Data (ED) Vital Signs Vital Signs - 24 hr 09/21/24 08:34 09/21/24 09:03 09/21/24 09:12 Temperature 36.4 C L Temperature Source Oral Pulse Rate 106 H 99 H Pulse Rate [Apical] Pulse Rhythm [Apical] Pulse Strength [Apical] Respiratory Rate 18 Respiratory Effort / Characteristics Respiratory Depth Respiratory Pattern Blood Pressure 159/80 H Blood Pressure [Right Arm] Blood Pressure Mean 106 Blood Pressure Mean [Right Arm] Blood Pressure Position Sitting Blood Pressure Position [Right Arm] Pulse Oximetry 95 85 L Oxygen Delivery Method Room Air Room Air Oxygen Flow Rate Sepsis Recent Fever Within 48 Hours No Sepsis New/Unexplained Change in Mental Status No Sepsis Action Taken by Nursing No Action Required Oxygen Flow Rate - Titration 2 Pulse Oximetry Post Tiitration 98 09/21/24 10:11 Temperature Temperature Source Pulse Rate Pulse Rate [Apical] 88 Pulse Rhythm [Apical] Regular Pulse Strength [Apical] Normal Respiratory Rate 18 Respiratory Effort / Characteristics Non-Labored Spontaneous Respiratory Depth Normal Respiratory Pattern Regular Blood Pressure Blood Pressure [Right Arm] 159/86 H Blood Pressure Mean Blood Pressure Mean [Right Arm] 110 Blood Pressure Position Blood Pressure Position [Right Arm] Semi-fowlers Pulse Oximetry 97 Oxygen Delivery Method Nasal Cannula Oxygen Flow Rate 2 Sepsis Recent Fever Within 48 Hours Sepsis New/Unexplained Change in Mental Status Sepsis Action Taken by Nursing Oxygen Flow Rate - Titration Pulse Oximetry Post Tiitration Laboratory Data 09/22/24 06:24 09/22/24 06:24 Lab Results 09/21/24 09/21/24 09/21/24 Range/Units 08:45 08:50 09:43 WBC 14.57 H (4.8-10.8) K/ul RBC 4.81 (4.20-5.40) M/uL Hgb 13.0 (12.0-16.0) g/dl Hct 39.6 (37.0-47.0) % MCV 82.3 (80.0-100.0) fL MCH 27.0 (25.0-34.0) pg MCHC 32.8 (32.0-36.0) g/dL RDW Std Deviation 43.8 (36.4-46.3) fL RDW Coeff of Chicho 14.6 H (11.5-14.5) % Plt Count 231 (130-400) K/uL MPV 9.5 (9.4-12.4) fL Immature Gran % (Auto) 0.4 % Neut % (Auto) 84.5 % Lymph % (Auto) 4.9 % Mckinley % (Auto) 10.0 % Eos % (Auto) 0.0 % Baso % (Auto) 0.2 % Neut # (Auto) 12.30 H (1.40-6.50) K/uL Lymph # (Auto) 0.72 L (1.20-3.40) K/uL Mckinley # (Auto) 1.46 H (0.11-0.59) K/uL Eos # (Auto) 0.00 (0.00-0.50) K/uL Baso # (Auto) 0.03 (0.00-0.20) K/uL Immature Gran # (Auto) 0.06 (0.01-0.20) K/uL Sodium 136 (136-145) mmol/L Potassium TNP 3.5 Chloride 99 (98-107) mmol/L Carbon Dioxide 27 (21-32) mmol/L Anion Gap 10 (3-11) BUN 27 H (6-23) mg/dl Creatinine 1.57 H (0.6-1.2) mg/dl Est Cr Clr Drug Dosing 36.2 ml/min eGFR 34.84 BUN/Creatinine Ratio 17.2 (10-20) Glucose 151 H (70-99(Fasting)) mg/dl Calcium 9.7 (8.6-10.3) mg/dl Magnesium 1.7 (1.7-2.4) mg/dl Total Bilirubin 1.9 H (0.2-1.0) mg/dl Direct Bilirubin TNP 0.3 H AST TNP 16 ALT 15 (7-52) U/L Alkaline Phosphatase 86 (34-104) U/L Total Protein 7.2 (6.0-8.3) gm/dl Albumin 4.3 (3.4-5.0) gm/dl Lipase 10 L (11-82) U/L Urine Color Yellow Urine Appearance Clear (Clear) Urine pH 5.5 (4.5-7.5) Ur Specific Raymond 1.022 (1.000-1.030) Urine Protein 1+ H (Negative) Urine Glucose (UA) Negative (Negative) Urine Ketones 1+ H (Negative) Urine Blood 3+ H (Negative) Urine Nitrite Negative (Negative) Urine Bilirubin Negative (Negative) Urine Urobilinogen Negative (Negative) Ur Leukocyte Esterase Negative (Negative) Urine WBC (Auto) 0-5 (0-5) /hpf Urine RBC (Auto) >20 H (0-2) /hpf U Hyaline Cast (Auto) 0-2 (0-2) /lpf U Epithel Cells (Auto) 3-5 H (0-2) /hpf Urine Bacteria (Auto) None Seen (None Seen) Urine Comment Administered Medications Acetaminophen (Acetaminophen 325 Mg Tab) 650 mg PO Q4H PRN PRN Reason: pain/fever Stop: 10/21/24 13:00 Last Admin: 09/22/24 05:03 Dose: 650 mg Documented By: DALE Sodium Chloride (Nss) 1,000 mls @ 125 mls/hr IV .Q8H [facility] Stop: 09/24/24 13:00 Last Admin: 09/22/24 05:32 Dose: 125 mls/hr Documented By: Infusion: 09/22/24 05:15 Dose: Infused Documented By: Admin: 09/21/24 21:15 Dose: 125 mls/hr Documented By: Infusion: 09/21/24 21:15 Dose: Infused Documented By: Admin: 09/21/24 13:28 Dose: 125 mls/hr Documented By: ALEXIA Insulin Aspart (Insulin Aspart Per Unit Charge) 0 units SC Q6 [facility] Stop: 10/22/24 05:59 Last Admin: 09/22/24 05:33 Dose: Not Given Documented By: DALE Co-signed By: PETRA Levothyroxine Sodium (Levothyroxine Sodium 100 Mcg Tablet) 100 mcg PO DAILYBB [facility] Stop: 10/22/24 06:29 Last Admin: 09/22/24 05:30 Dose: 100 mcg Documented By: DALE Discontinued Medications Sodium Chloride (Nss) 1,000 mls @ 999 mls/hr IV .Q1H1M ONE Stop: 09/21/24 09:48 Last Infusion: 09/21/24 10:12 Dose: Infused Documented By: Admin: 09/21/24 08:54 Dose: 999 mls/hr Documented By: SERGIOM Insulin Aspart (Insulin Aspart Per Unit Charge) 0 units SC ACHS [facility] Stop: 10/21/24 13:00 Last Admin: 09/21/24 20:41 Dose: Not Given Documented By: PETRA Co-signed By: DALE Admin: 09/21/24 16:36 Dose: Not Given Documented By: Admin: 09/21/24 13:22 Dose: Not Given Documented By: ALEXIA Morphine Sulfate (Morphine Sulfate 10 Mg/Ml Carp/Vial) 6 mg IV NOW STA Stop: 09/21/24 08:49 Last Admin: 09/21/24 08:54 Dose: 6 mg Documented By: SERGIOM Ondansetron HCl (Ondansetron Inj 2 Mg/Ml 2 Ml Vial) 4 mg IV NOW STA Stop: 09/21/24 08:49 Last Admin: 09/21/24 08:53 Dose: 4 mg Documented By: DAVID Discharge Plan Visit Data Chief Complaint: Kidney Stone Stated Complaint: KIDNEY STONE ED Provider: Bruno Flores Discharge Problem: Ureteral obstruction, left, Calculus of distal left ureter, HAZEL (acute kidney injury), Acute dehydration Patient Disposition: Admitted As Inpatient Condition: Fair Discharge Instructions Interventions: ED Discharge Assessment Last Done: 09/21/24 12:15
[2024-09-21] MEDS: ONDANSETRON INJ 2 MG/ML 2 ML VIAL IV STA (08:53)
[2024-09-21] MEDS: MoRPHine SULFATE 10 MG/ML CARP/VIAL IV STA (08:54)
[2024-09-21] MEDS: SODIUM CHLORIDE 0.9% 1,000 ML IV ONE (08:54)
[2024-09-21 09:00] LABS: Appearance Urine Clear (Clear); Bacteria Urine Automated None Seen (None Seen); Cast Urine Automated 0-2 /lpf (0-2); Glucose Urine UA Negative (Negative); RBC Urine Automated >20 /hpf (0-2); WBC Urine Automated 0-5 /hpf (0-5)
[2024-09-21 09:04] LABS: Hematocrit (blood only) 39.6 % (37.0-47.0); Hemoglobin 13.0 g/dl (12.0-16.0); Immature Granulocytes # (auto) 0.06 K/uL (0.01-0.20); Immature Granulocytes % (auto) 0.4 %; Mean Corpuscular Hemoglobin 27.0 pg (25.0-34.0); Mean Corpuscular Volume 82.3 fL (80.0-100.0); Platelet Count 231 K/uL (130-400); RDW Standard Deviation 43.8 fL (36.4-46.3); Red Blood Count 4.81 M/uL (4.20-5.40); White Blood Count 14.57 K/ul (4.8-10.8)
[2024-09-21 09:33] LABS: Alanine Aminotransferase 15 U/L (7-52); Alkaline Phosphatase 86 U/L (34-104); Anion Gap 10 (3-11); Bilirubin,Total 1.9 mg/dl (0.2-1.0); Blood Urea Nitrogen 27 mg/dl (6-23); Calcium 9.7 mg/dl (8.6-10.3); Carbon Dioxide 27 mmol/L (21-32); Chloride 99 mmol/L (98-107); Creatinine Clr Calc Pharmacy 36.2 ml/min; Glucose 151 mg/dl (70-99(Fasting)); Lipase 10 U/L (11-82); Magnesium 1.7 mg/dl (1.7-2.4); Sodium 136 mmol/L (136-145); Total Protein 7.2 gm/dl (6.0-8.3)
[2024-09-21 10:16] LABS: Potassium 3.5 mmol/L (3.5-5.1)
--- NOTE | 2024-09-21 11:31 | History & Physical Report ---
Date of Service September 21, 2024 Assessment & Plan (1) Acute left flank pain: (2) Kidney stone on left side: (3) Hypothyroidism: (4) Type 2 diabetes mellitus with obesity: (5) Hypercholesterolemia: (6) Primary hypertension: Plan This is a 74-year-old female with hypertension, hyperlipidemia, diabetes mellitus type 2, hypothyroidism who presented with left sided flank pain 3 days ago. She was diagnosed with a left ureteral stone and was sent home. However she continued with severe pain and started having vomiting in the past 24 hours. She is being admitted for management of ureteral stone #Left ureteral stone. Will conservatively manage for now with IV fluids, analgesics, tamsulosin and Pyridium. Urology consulted Some hydronephrosis seen If the patient does not pass the stone with conservative treatment, urology plans to tentatively do a cystoscopy and stent placement on 09/22 Start her on a clear liquid diet now N.p.o. postmidnight IV Zofran for vomiting IV morphine for pain control #Acute kidney injury Most likely prerenal due to dehydration from vomiting Obstructive uropathy is in the differential but thought to be less likely Hydrate and recheck BMP in a.m. Avoid nephrotoxic medications #Leukocytosis Most likely stress related Repeat CBC in a.m. Urinalysis is not suggestive of UTI #Hypertension Hold olmesartan and indapamide in the setting of acute kidney injury Continue diltiazem 240 mg #Hyperlipidemia Continue statin #Diabetes mellitus type 2 Hold Trulicity and metformin Sliding scale insulin #Hypothyroidism Continue Synthroid VTE prophylaxis: No chemical prophylaxis if the patient has hematuria. SCDs. DNR/DNI History of Present Illness Chief Complaint: Left flank pain Primary Care Provider: Elicia Marquez MD This is a 74-year-old female with hypertension, hyperlipidemia, diabetes mellitus type 2, obesity, hypothyroidism who presented with left flank pain. The patient presented to the ER 3 days ago and was found to have a 4 mm mid ureteral stone with some hydronephrosis. She was discharged to home and was advised to drink plenty of fluids and use [id number] pain medications. But in the past 3 days, her symptoms have not improved rather she started vomiting over the past 24 hours and was unable to keep anything down. She does presented back to the emergency room. Today her white count is slightly elevated 14,000 and her creatinine is slightly elevated at 1.57. I was asked to admit this patient for IV hydration and pain management for left ureteral stone. She received IV morphine before I had seen her in the emergency room. Her pain is much better controlled now. Allergies Allergy/AdvReac Type Severity Reaction Status Date / Time cefuroxime [From Ceftin] Allergy Unknown Verified 05/20/24 10:31 Home Medications Medication Instructions Recorded Confirmed Type cholecalciferol (vitamin D3) 25 25 mcg PO DAILY 04/14/21 09/21/24 History mcg (1,000 unit) capsule mecobalamin (vitamin B12) 1,000 1,000 mcg PO DAILY #30 tabs 07/14/21 09/21/24 Rx mcg chewable tablet (B12 Active) ascorbic acid (vitamin C) 500 mg 500 mg PO DAILY 05/19/22 09/21/24 History tablet albuterol sulfate 90 mcg/actuation 2 puff inhalation Q4H PRN 08/11/22 09/21/24 Rx aerosol inhaler shortness of breath or wheezing #8.5 grams diltiazem HCl 240 mg capsule,24 240 mg PO DAILY #90 caps 01/01/24 09/21/24 Rx hr,extended release metformin 500 mg tablet,extended 1,000 mg (2 x 500 mg) PO DAILY 01/01/24 09/21/24 Rx release 24 hr #180 tabs pantoprazole 20 mg tablet,delayed 20 mg PO DAILY #90 tabs 01/01/24 09/21/24 Rx release olmesartan 5 mg tablet 10 mg (2 x 5 mg) PO DAILY #180 tabs 06/11/24 09/21/24 Rx atorvastatin 20 mg tablet 20 mg PO DAILY #90 tabs 06/13/24 09/21/24 Rx indapamide 1.25 mg tablet 1.25 mg PO DAILY #90 tabs 06/13/24 09/21/24 Rx levothyroxine 100 mcg tablet 100 mcg PO DAILY #90 tabs 07/09/24 09/21/24 Rx dulaglutide 4.5 mg/0.5 mL 4.5 mg (0.5 mL) subcut Q7D #12 mL 07/18/24 09/21/24 Rx subcutaneous pen injector celecoxib 200 mg capsule 200 mg PO BID PRN pain #180 caps 06/23/25 07/26/25 Rx oxycodone 5 mg tablet 5 mg PO Q6H PRN pain #15 tabs 09/18/24 09/21/24 Rx tamsulosin 0.4 mg capsule (Flomax) 0.4 mg PO HS #20 caps 09/18/24 09/21/24 Rx Past Med/Surg History Problem List Acute left flank pain (Acute) Kidney stone on left side (Acute) Spinal stenosis of lumbar region Diabetic retinopathy Obesity (BMI 30-39.9) Osteoarthritis (Chronic) Hypothyroidism (Chronic) Hypercholesterolemia (Chronic) Cervical radiculopathy at C8 (Chronic) Carpal tunnel syndrome of right wrist (Chronic) Gastroesophageal reflux disease (Chronic) Primary hypertension Vitamin D deficiency Osteopenia B12 deficiency Type 2 diabetes mellitus with obesity Medical History Type 2 diabetes mellitus with albuminuria Olecranon bursitis Surgical History S/P trigger finger release left trigger thumb, left middle finger S/P arthroscopy of right shoulder RCR S/P bunionectomy S/P knee replacement bilateral TKA S/P hysterectomy S/P cholecystectomy Family History Mother Diabetes Denies family history of Ovarian cancer Prostate cancer Breast cancer Lung cancer Colorectal cancer Social History Smoking Status: Never smoker Second Hand Exposure: No; Hx Alcohol Use: Yes Hx Substance Use: No Preferred Language: Eritrean Visual Impairment: No Limitations Hearing Ability: Normal marital status: Current Living Situation: Spouse current occupational status: employed and retired 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 Normal effort Abdomen: Soft/nontender/nondistended. No hepatosplenomegaly. No flank pain since she had received morphine Extremities: No clubbing/cyanosis. No edema Behavior: Appropriate, cooperative Results & Data Results & Data Vital Signs (Past 12 Hours) Vital Signs Temp Pulse Pulse Resp BP BP Pulse Ox 09/21/24 10:11 88 18 159/86 H 97 09/21/24 09:12 85 L 09/21/24 09:03 99 H 09/21/24 08:34 36.4 C L 106 H 18 159/80 H 95 O2 Del Method O2 Flow Rate 09/21/24 10:11 Nasal Cannula 2 09/21/24 09:12 Room Air 09/21/24 09:03 09/21/24 08:34 Room Air Laboratory Results Abnormal lab results 09/21/24 09/21/24 09/21/24 Range/Units 08:45 08:50 09:43 WBC 14.57 H (4.8-10.8) K/ul RDW Coeff of Chicho 14.6 H (11.5-14.5) % Neut # (Auto) 12.30 H (1.40-6.50) K/uL Lymph # (Auto) 0.72 L (1.20-3.40) K/uL [place] # (Auto) 1.46 H (0.11-0.59) K/uL BUN 27 H (6-23) mg/dl Creatinine 1.57 H (0.6-1.2) mg/dl Glucose 151 H (70-99(Fasting)) mg/dl POC Glucose (70-99) mg/dl Total Bilirubin 1.9 H (0.2-1.0) mg/dl Direct Bilirubin 0.3 H (0-0.2) mg/dl Lipase 10 L (11-82) U/L Urine Protein 1+ H (Negative) Urine Ketones 1+ H (Negative) Urine Blood 3+ H (Negative) Urine RBC (Auto) >20 H (0-2) /hpf U Epithel Cells (Auto) 3-5 H (0-2) /hpf 09/21/24 Range/Units 12:59 WBC (4.8-10.8) K/ul RDW Coeff of Chicho (11.5-14.5) % Neut # (Auto) (1.40-6.50) K/uL Lymph # (Auto) (1.20-3.40) K/uL [place] # (Auto) (0.11-0.59) K/uL BUN (6-23) mg/dl Creatinine (0.6-1.2) mg/dl Glucose (70-99(Fasting)) mg/dl POC Glucose 114 H (70-99) mg/dl Total Bilirubin (0.2-1.0) mg/dl Direct Bilirubin (0-0.2) mg/dl Lipase (11-82) U/L Urine Protein (Negative) Urine Ketones (Negative) Urine Blood (Negative) Urine RBC (Auto) (0-2) /hpf U Epithel Cells (Auto) (0-2) /hpf Code Status & VTE Plan VTE Prophylaxis Plan VTE Prophylaxis will be ordered: Yes PG Care Time/CCT Total # of Minutes Spent Total Time Spent with Patient: Total time spent is greater than 50% in coordination of care (as documented) at patient's floor/unit and/or counseling patient: Coding Level of Care Code 10835 INT INP/OBS CARE 2/55MIN Diagnoses Acute left flank pain R10.9 Kidney stone on left side N20.0 Hypothyroidism E03.9 Type 2 diabetes mellitus with obesity E11.69; E66.9 Hypercholesterolemia E78.00 Primary hypertension I10
--- NOTE | 2024-09-21 11:45 | Urology Consultation ---
Date of Consultation September 21, 2024 Assessment & Plan (1) Kidney stone on left side: (2) Acute left flank pain: Plan We reviewed the stone on her CT scan. It is large enough that she has a fairly low chance of passing it spontaneously. I have low suspicion for underlying UTI and the bump in creatinine is most likely related to dehydration. We discussed the option of medical expulsive therapy, but since she did not do well at home after recent ED visit, I do not think this is a great option. We discussed the alternative of cystoscopy, left retrograde pyelogram and left ureteral stent placement. We discussed risks of bleeding, infection, injury to urinary tract, need for additional procedures, inability to place stent. Of these options, she is hesitant to undergo anesthesia, but does not want to have the pain again. Would recommend starting with trial of pain control in the hospital and medical expulsive therapy (Tylenol, ketorolac, tamsulosin, Pyridium, narcotics if needed, nausea control). If this is unsuccessful, we will tentatively schedule her for cystoscopy and stent placement on 09/22/2024. History of Present Illness Reason for Consultation: Left ureteral stone History of Present Illness This is a 74-year-old female who presented to the emergency department on 09/21/2024 with flank pain related to a left ureteral stone. She had been in the emergency room previously on 09/18/2024 with the same issue and went home for a trial of medical expulsive therapy. Unfortunately she had ongoing nausea and pain and returned as these could not be controlled. Urology was consulted regarding her kidney stone. She denies any prior history of stones. She currently denies any fevers or chills. She has never had any surgical intervention on the urinary tract. She has never seen a urologist in the past and has no family history of malignancy. Labs reviewed: 09/21/2024: WBC 14.57, creatinine 1.57, glucose 151 Urinalysis with no bacteria, negative leukocyte esterase, negative nitrites I independently reviewed her CT scan images from 09/18/2024. Both kidneys are normal position. There is hydronephrosis of the left side extending down to a stone in the proximal ureter measuring approximately 6 x 7 mm. She has simple appearing cortical cysts of the right kidney. I do not appreciate any stones on the right. Her bladder is grossly normal. Allergies Allergy/AdvReac Type Severity Reaction Status Date / Time cefuroxime [From Ceftin] Allergy Unknown Verified 05/20/24 10:31 Home Medications Medication Instructions Recorded Confirmed Type cholecalciferol (vitamin D3) 25 25 mcg PO DAILY 04/14/21 09/21/24 History mcg (1,000 unit) capsule mecobalamin (vitamin B12) 1,000 1,000 mcg PO DAILY #30 tabs 07/14/21 09/21/24 Rx mcg chewable tablet (B12 Active) ascorbic acid (vitamin C) 500 mg 500 mg PO DAILY 05/19/22 09/21/24 History tablet albuterol sulfate 90 mcg/actuation 2 puff inhalation Q4H PRN 08/11/22 09/21/24 Rx aerosol inhaler shortness of breath or wheezing #8.5 grams diltiazem HCl 240 mg capsule,24 240 mg PO DAILY #90 caps 01/01/24 09/21/24 Rx hr,extended release metformin 500 mg tablet,extended 1,000 mg (2 x 500 mg) PO DAILY 01/01/24 09/21/24 Rx release 24 hr #180 tabs pantoprazole 20 mg tablet,delayed 20 mg PO DAILY #90 tabs 01/01/24 09/21/24 Rx release olmesartan 5 mg tablet 10 mg (2 x 5 mg) PO DAILY #180 tabs 06/11/24 09/21/24 Rx atorvastatin 20 mg tablet 20 mg PO DAILY #90 tabs 06/13/24 09/21/24 Rx indapamide 1.25 mg tablet 1.25 mg PO DAILY #90 tabs 06/13/24 09/21/24 Rx levothyroxine 100 mcg tablet 100 mcg PO DAILY #90 tabs 07/09/24 09/21/24 Rx dulaglutide 4.5 mg/0.5 mL 4.5 mg (0.5 mL) subcut Q7D #12 mL 07/18/24 09/21/24 Rx subcutaneous pen injector celecoxib 200 mg capsule 200 mg PO BID PRN pain #180 caps 08/19/24 09/21/24 Rx oxycodone 5 mg tablet 5 mg PO Q6H PRN pain #15 tabs 09/18/24 09/21/24 Rx tamsulosin 0.4 mg capsule (Flomax) 0.4 mg PO HS #20 caps 09/18/24 09/21/24 Rx Patient History Medical History Type 2 diabetes mellitus with albuminuria Olecranon bursitis Surgical History S/P trigger finger release left trigger thumb, left middle finger S/P arthroscopy of right shoulder RCR S/P bunionectomy S/P knee replacement bilateral TKA S/P hysterectomy S/P cholecystectomy Family History Mother Diabetes Denies family history of Ovarian cancer Prostate cancer Breast cancer Lung cancer Colorectal cancer Social History Smoking Status: Never smoker Second Hand Exposure: No; Hx Alcohol Use: Yes Hx Substance Use: No Preferred Language: Polish Visual Impairment: No Limitations Hearing Ability: Normal marital status: Current Living Situation: Spouse current occupational status: employed and retired 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 Physical Exam Constitutional: well developed and well nourished; no acute distress Eyes: + anicteric sclerae; pupils not irregula r Respiratory: normal respiratory effort; no respiratory distress, does not use accessory muscles and no cough Cardiovascular: well perfused Gastrointestinal (Abdomen): Inspection/Auscultation: abdomen normal to inspection; abdomen not distended Musculoskeletal: Extremities: extremities normal to inspection Skin: normal turgor; no rashes and no lesions Neurologic: moves all extremities and awake Psychiatric: Orientation: alert and oriented x 3 Results & Data Vital Signs (Past 12 Hours) Vital Signs Temp Pulse Pulse Resp BP BP Pulse Ox 09/21/24 10:11 88 18 159/86 H 97 09/21/24 09:12 85 L 09/21/24 09:03 99 H 09/21/24 08:34 36.4 C L 106 H 18 159/80 H 95 O2 Del Method O2 Flow Rate 09/21/24 10:11 Nasal Cannula 2 09/21/24 09:12 Room Air 09/21/24 09:03 09/21/24 08:34 Room Air PG Care Time/CCT Total # of Minutes Spent Total Time Spent with Patient: Total time spent is greater than 50% in coordination of care (as documented) at patient's floor/unit and/or counseling patient: Coding Level of Care Code 50839 OP VST NEW MOD 45 MIN Diagnoses Kidney stone on left side N20.0 Acute left flank pain R10.9
[2024-09-21] MEDS ORDERED: GLUCAGON FOR INJ 1 MG VIAL SQ PRN (13:01)
[2024-09-21] MEDS ORDERED: GLUCOSE 10 TAB/TUBE PO PRN (13:01)
[2024-09-21] MEDS ORDERED: CARBOHYDRATES FOR HYPOGLYCEMIA PO PRN (13:01)
[2024-09-21] MEDS ORDERED: GLUCOSE 40% GEL 15 GM TUBE PO PRN (13:01)
[2024-09-21] MEDS ORDERED: POLYETHYLENE (MIRALAX) 17 GM PACK PO PRN (13:01)
[2024-09-21] MEDS ORDERED: ONDANSETRON INJ 2 MG/ML 2 ML VIAL IV PRN (13:01)
[2024-09-21] MEDS ORDERED: DEXTROSE 50% 50 ML SYRINGE IV PRN (13:01)
[2024-09-21] MEDS: INSULIN ASPART PER UNIT CHARGE SC SCH (13:22)
[2024-09-21] MEDS: SODIUM CHLORIDE 0.9% 1,000 ML IV SCH (13:28)
[2024-09-21] MEDS ORDERED: PHENAZOPYRIDINE HCL 100 MG TAB PO PRN (14:31)
[2024-09-22] MEDS ORDERED: Nursing to Pharmacy Communication SCH ×2 (01:45→14:45)
[2024-09-22] MEDS: ACETAMINOPHEN 325 MG TAB PO PRN (05:03)
[2024-09-22] MEDS: LEVOTHYROXINE SODIUM 100 MCG TABLET PO SCH (05:30)
[2024-09-22] MEDS: INSULIN ASPART PER UNIT CHARGE SC SCH ×2 (05:33→17:07)
[2024-09-22 06:58] LABS: Hematocrit (blood only) 35.8 % (37.0-47.0); Hemoglobin 11.5 g/dl (12.0-16.0); Mean Corpuscular Hemoglobin 26.9 pg (25.0-34.0); Mean Corpuscular Volume 83.8 fL (80.0-100.0); Platelet Count 191 K/uL (130-400); RDW Standard Deviation 45.4 fL (36.4-46.3); Red Blood Count 4.27 M/uL (4.20-5.40); White Blood Count 9.25 K/ul (4.8-10.8)
[2024-09-22 07:24] LABS: Anion Gap 8.0 (3-11); Blood Urea Nitrogen 22.0 mg/dl (6-23); Calcium 8.9 mg/dl (8.6-10.3); Carbon Dioxide 27.0 mmol/L (21-32); Chloride 107.0 mmol/L (98-107); Creatinine Clr Calc Pharmacy 33.4 ml/min; Glucose 92.0 mg/dl (70-99(Fasting)); Potassium 3.7 mmol/L (3.5-5.1); Sodium 142.0 mmol/L (136-145)
--- NOTE | 2024-09-22 08:13 | Anesthesiology Consultation ---
Date of Service September 22, 2024 Assessment & Plan Chart Review Chart Review: Acceptable Risk for Surgery and Patient NOT seen in Pre Admission Testing Consults Requested none History Surgery Operation Date: 09/22/24 08:00 Proposed Procedures p Cystoscopy, Ureteral Stent Insertion/Removal(Left) - Bruno Evans MD Height/Weight Height: 5 ft 4 in Weight: 84.4 kg Allergies Allergy/AdvReac Type Severity Reaction Status Date / Time cefuroxime [From Ceftin] Allergy Unknown Verified 05/20/24 10:31 Medications Home Medications Medication Instructions Recorded Confirmed Last Taken cholecalciferol (vitamin D3) 25 25 mcg PO DAILY 04/14/21 09/21/24 Unknown mcg (1,000 unit) capsule mecobalamin (vitamin B12) 1,000 1,000 mcg PO DAILY #30 tabs 07/14/21 09/21/24 Unknown mcg chewable tablet (B12 Active) ascorbic acid (vitamin C) 500 mg 500 mg PO DAILY 05/19/22 09/21/24 Unknown tablet albuterol sulfate 90 mcg/actuation 2 puff inhalation Q4H PRN 08/11/22 09/21/24 Unknown aerosol inhaler shortness of breath or wheezing #8.5 grams diltiazem HCl 240 mg capsule,24 240 mg PO DAILY #90 caps 01/01/24 09/21/24 Unknown hr,extended release metformin 500 mg tablet,extended 1,000 mg (2 x 500 mg) PO DAILY 01/01/24 09/21/24 Unknown release 24 hr #180 tabs pantoprazole 20 mg tablet,delayed 20 mg PO DAILY #90 tabs 01/01/24 09/21/24 Unknown release olmesartan 5 mg tablet 10 mg (2 x 5 mg) PO DAILY #180 tabs 06/11/24 09/21/24 Unknown atorvastatin 20 mg tablet 20 mg PO DAILY #90 tabs 06/13/24 09/21/24 Unknown indapamide 1.25 mg tablet 1.25 mg PO DAILY #90 tabs 06/13/24 09/21/24 Unknown levothyroxine 100 mcg tablet 100 mcg PO DAILY #90 tabs 07/09/24 09/21/24 Unknown dulaglutide 4.5 mg/0.5 mL 4.5 mg (0.5 mL) subcut Q7D #12 mL 07/18/24 09/21/24 Unknown subcutaneous pen injector celecoxib 200 mg capsule 200 mg PO BID PRN pain #180 caps 08/19/24 09/21/24 Unknown oxycodone 5 mg tablet 5 mg PO Q6H PRN pain #15 tabs 09/18/24 09/21/24 Unknown tamsulosin 0.4 mg capsule (Flomax) 0.4 mg PO HS #20 caps 09/18/24 09/21/24 Unknown Active Medications Generic Name Dose Route Start Last Admin Trade Name Branden PRN Reason Stop Dose Admin Acetaminophen 650 mg 09/21/24 13:01 09/22/24 05:03 Acetaminophen 325 Mg Tab PO 10/21/24 13:00 650 mg Q4H PRN Administration pain/fever Sodium Chloride 1,000 mls @ 125 mls/hr 09/21/24 13:01 09/22/24 05:32 Nss IV 09/24/24 13:00 125 mls/hr .Q8H CHATA Administration Insulin Aspart 0 units 09/22/24 06:00 09/22/24 05:33 Insulin Aspart Per Unit Charge SC 10/22/24 05:59 Not Given Q6 CHATA Levothyroxine Sodium 100 mcg 09/22/24 06:30 09/22/24 05:30 Levothyroxine Sodium 100 Mcg Tablet PO 10/22/24 06:29 100 mcg DAILYBB CHATA Administration Past Medical History Medical History Type 2 diabetes mellitus with albuminuria Olecranon bursitis Past Family History Family History Mother Diabetes Denies family history of Ovarian cancer Prostate cancer Breast cancer Lung cancer Colorectal cancer Past Surgical History Surgical History S/P trigger finger release left trigger thumb, left middle finger S/P arthroscopy of right shoulder RCR S/P bunionectomy S/P knee replacement bilateral TKA S/P hysterectomy S/P cholecystectomy Social History Smoking Status: Never smoker Hx Alcohol Use: Yes alcohol intake frequency: a few times a month Hx Substance Use: No Physical Exam Vital Signs Last Vital Signs Temp 36.7 C 09/22/24 07:18 Pulse 91 H 09/22/24 07:18 Resp 17 09/22/24 07:18 BP 156/85 H 09/22/24 07:18 Pulse Ox 93 09/22/24 07:18 O2 Del Method Room Air 09/22/24 07:18 O2 Flow Rate 2 09/21/24 12:15 Testing Laboratory Results 09/22/24 06:24 09/22/24 06:24 Urine Color Yellow 09/21/24 08:45 Urine Appearance Clear (Clear) 09/21/24 08:45 Urine pH 5.5 (4.5-7.5) 09/21/24 08:45 Ur Specific [place] 1.022 (1.000-1.030) 09/21/24 08:45 Urine Protein 1+ (Negative) H 09/21/24 08:45 Urine Glucose (UA) Negative (Negative) 09/21/24 08:45 Urine Ketones 1+ (Negative) H 09/21/24 08:45 Urine Nitrite Negative (Negative) 09/21/24 08:45 Ur Leukocyte Esterase Negative (Negative) 09/21/24 08:45 Urine WBC (Auto) 0-5 /hpf (0-5) 09/21/24 08:45 Urine RBC (Auto) >20 /hpf (0-2) H 09/21/24 08:45 U Hyaline Cast (Auto) 0-2 /lpf (0-2) 09/21/24 08:45 U Epithel Cells (Auto) 3-5 /hpf (0-2) H 09/21/24 08:45 Urine Bacteria (Auto) None Seen (None Seen) 09/21/24 08:45 09/22/24 09/21/24 05:30 20:28 POC Glucose 90 96
[2024-09-22] MEDS ORDERED: ONDANSETRON INJ 2 MG/ML 2 ML VIAL ONE (08:39)
[2024-09-22] MEDS ORDERED: MIDAZOLAM HCL 1 MG/ML 2ML VIAL ONE (08:39)
[2024-09-22] MEDS ORDERED: LIDOCAINE 2% 2 ML VIAL/AMP(20MG/ML) INFIL ONE (08:39)
[2024-09-22] MEDS: TAMSULOSIN HCL 0.4 MG CAP PO SCH (09:07)
--- NOTE | 2024-09-22 09:49 | Urology Progress Note ---
Date of Service September 22, 2024 Assessment & Plan (1) HAZEL (acute kidney injury): (2) Acute left flank pain: (3) Kidney stone on left side: Plan 74-year-old female with left ureteral stone. Since she has not passed the stone and since she did not do well with trial of medical expulsive therapy at home, we will plan on cystoscopy, left ureteral stent placement today. We reviewed risks and benefits of surgery including bleeding, infection, injury to urinary tract, need for additional procedures. She expressed understanding and would like to proceed. Admission and Anticipated Discharge Date Admission Date: September 21, 2024 Subjective 74-year-old female with left ureteral stone Has been feeling better overnight, but has not passed stone Denies any fevers or chills No nausea or vomiting this morning Labs reviewed: 09/22/2024: WBC 9.25, creatinine 1.60, glucose 90 Physical Exam Physical Exam: Well-appearing, NAD Results & Data Vital Signs (Past 12 Hours) Vital Signs Temp Pulse Resp BP Pulse Ox O2 Del Method 09/22/24 07:18 36.7 C 91 H 17 156/85 H 93 Room Air 09/22/24 05:10 169/81 H 09/21/24 22:30 37.1 C 89 18 137/79 92 Room Air PG Care Time/CCT Total # of Minutes Spent Total Time Spent with Patient: Total time spent is greater than 50% in coordination of care (as documented) at patient's floor/unit and/or counseling patient: Coding Level of Care Code 89086 SUB INP/OBS CARE 2/35MIN Diagnoses HAZEL (acute kidney injury) N17.9 Acute left flank pain R10.9 Kidney stone on left side N20.0
[2024-09-22] MEDS ORDERED: ATROPINE SULFATE 0.1 MG/ML 10ML SYR IV PRN (11:12)
[2024-09-22] MEDS ORDERED: ONDANSETRON INJ 2 MG/ML 2 ML VIAL IV PRN (11:12)
--- NOTE | 2024-09-22 11:26 | Hospitalist Progress Note ---
Date of Service September 22, 2024 Assessment & Plan (1) Acute left flank pain: (2) Kidney stone on left side: (3) Hypothyroidism: (4) Type 2 diabetes mellitus with obesity: (5) Hypercholesterolemia: (6) Primary hypertension: Plan This is a 74-year-old female with hypertension, hyperlipidemia, diabetes mellitus type 2, hypothyroidism who presented with left sided flank pain 3 days ago. She was diagnosed with a left ureteral stone and was sent home. However she continued with severe pain and started having vomiting in the past 24 hours. She is being admitted for management of ureteral stone #Left ureteral stone. Patient has not passed the stone despite conservative management for now with IV fluids, analgesics, tamsulosin and Pyridium. Urology involved, planning on cystoscopy and ureteral stent insertion today Some hydronephrosis seen N.p.o. postmidnight IV Zofran for vomiting IV morphine for pain control #Acute kidney injury Most likely prerenal due to dehydration from vomiting Obstructive uropathy is in the differential but thought to be less likely Hydrated and interval improvement seen Patient is going for stent has been today #Leukocytosis Most likely stress related Resolved Urinalysis does not suggest UTI #Hypertension Hold olmesartan and indapamide in the setting of acute kidney injury Continue diltiazem 240 mg #Hyperlipidemia Continue statin #Diabetes mellitus type 2 Hold Trulicity and metformin Sliding scale insulin #Hypothyroidism Continue Synthroid VTE prophylaxis: No chemical prophylaxis if the patient has hematuria. SCDs. DNR/DNI Admission and Anticipated Discharge Date Admission Date: September 21, 2024 Subjective Patient says that she has not passed a stone overnight. No fever or chills. Review of Systems Review of Systems: All systems reviewed & are unremarkable except as noted in Subjective Physical Exam Physical Exam: General: Awake, conversant Heart: S1, S2/regular rate and rhythm, no murmur rubs or gallops Lungs: Clear to auscultation bilaterally. Normal effort Abdomen: Soft/nontender/nondistended. No hepatosplenomegaly. Extremities: No clubbing/cyanosis. No edema Behavior: Appropriate, cooperative Results & Data Results & Data Vital Signs (Past 12 Hours) Vital Signs Temp Pulse Resp BP Pulse Ox O2 Del Method 09/22/24 07:18 36.7 C 91 H 17 156/85 H 93 Room Air 09/22/24 05:10 169/81 H Laboratory Results Abnormal lab results 09/21/24 09/22/24 Range/Units 12:59 06:24 Hgb 11.5 L (12.0-16.0) g/dl Hct 35.8 L (37.0-47.0) % RDW Coeff of Chicho 14.9 H (11.5-14.5) % Creatinine 1.60 H (0.6-1.2) mg/dl POC Glucose 114 H (70-99) mg/dl PG Care Time/CCT Total # of Minutes Spent Total Time Spent with Patient: Total time spent is greater than 50% in coordination of care (as documented) at patient's floor/unit and/or counseling patient: Coding Level of Care Code 46734 SUB INP/OBS CARE 2/35MIN Diagnoses Acute left flank pain R10.9 Kidney stone on left side N20.0 Hypothyroidism E03.9 Type 2 diabetes mellitus with obesity E11.69; E66.9 Hypercholesterolemia E78.00 Primary hypertension I10
--- NOTE | 2024-09-22 11:39 | Operative Report ---
PG Post Operative Report Pre & Post Diagnosis Operation Date: 09/22/24 08:00 Pre-Op Diagnosis: (1) HAZEL (acute kidney injury): (2) Acute left flank pain: (3) Kidney stone on left side: Post-Op Diagnosis: (1) HAZEL (acute kidney injury): (2) Acute left flank pain: (3) Kidney stone on left side: I identified the patient and participated in the time-out.: Yes Procedure Operation Date: 09/22/24 08:00 Actual Procedures p Cystoscopy, Retrograde Pyelogram, Ureteral Stent Insertion-Left(Left) - Bruno Evans MD Surgeon Bruno Evans MD Brush Sander None Estimated Blood Loss 0 Findings Consistent with Post-Op Diagnosis Specimens None Drains 6 Tajik by 24 cm double-J ureteral stent in the left ureter Anesthesia Type MAC Complications none Disposition Accompanied Patient To Recovery: Yes Disposition: Recovery Room Indications This is a 74-year-old female admitted to the hospital with ongoing left-sided flank pain from a left ureteral stone. She is brought to the OR for left ureteral stent placement to decompress the left kidney. Description of Procedure The patient was identified in the holding area and informed consent was confirmed. She was marked on the left side, then was taken to the operating room where anesthesia was initiated. She was placed in the dorsal lithotomy position with all pressure points appropriately padded. She was prepped and draped in the usual sterile fashion and a preoperative timeout was performed. A well-lubricated cystoscope was inserted per urethra and panendoscopy was performed. The urethra was normal in appearance. The bladder was of normal size with ureteral orifices in orthotopic position. The left ureteral orifice was identified and cannulated with a 5 Tajik open- ended catheter. A retrograde pyelogram was performed demonstrating hydronephrosis of the left ureter and mild dilation of the left kidney. A 0.038" ZIPwire was advanced to the level of the kidney under fluoroscopic guidance. Over the wire, a 6 Tajik x 24 centimeter double-J ureteral stent was advanced. When the wire was removed, the proximal curl was visualized in the kidney with x-ray, and the distal curl visualized in the bladder with the cystoscope. At this point the bladder was drained and all instrumentation was removed. The patient was then awakened from anesthesia and was brought to the PACU in stable condition. I attest to the content of the Intraoperative Record and any orders documented therein. Any exceptions are noted below.
[2024-09-22] MEDS: CIPROFLOXACIN / D5W 400 MG/200 ML BAG IV SCH (11:51)
[2024-09-22] MEDS: DIATRIZOATE MEGLUMINE 30% 100ML VIAL INSTIL ONE (12:35)
--- NOTE | 2024-09-22 12:55 | Fluoroscopy Report ---
FL retrograde includes kub CLINICAL HISTORY: LEFT STENT PLACEMENT COMPARISON STUDY: None FLUOROSCOPY TIME: 7 seconds FLUOROSCOPY IMAGES: 4 EXPOSURE DOSE: 2 mGy FINDINGS: Fluoroscopy was provided for urologic procedure. IMPRESSION: Intraoperative fluoroscopy. ACT 112: Negative or not required by law. Electronically signed by: Don Hall M.D. 09/22/2024 12:54 PM
[2024-09-22] MEDS: MoRPHine SULFATE 2 MG/ML CARP IV PRN (14:01)
[2024-09-23 02:52] VITALS: TEMP 98.1
[2024-09-23 07:24] LABS: Hematocrit (blood only) 34.6 % (37.0-47.0); Hemoglobin 11.2 g/dl (12.0-16.0); Mean Corpuscular Hemoglobin 27.5 pg (25.0-34.0); Mean Corpuscular Volume 85.0 fL (80.0-100.0); Platelet Count 214 K/uL (130-400); RDW Standard Deviation 45.1 fL (36.4-46.3); Red Blood Count 4.07 M/uL (4.20-5.40); White Blood Count 8.57 K/ul (4.8-10.8)
[2024-09-23 07:27] VITALS: BP 163/81; PULSE 68; RESP 18; O2SAT 94
[2024-09-23 07:58] LABS: Anion Gap 7.0 (3-11); Blood Urea Nitrogen 15.0 mg/dl (6-23); Calcium 9.2 mg/dl (8.6-10.3); Carbon Dioxide 27.0 mmol/L (21-32); Chloride 108.0 mmol/L (98-107); Creatinine Clr Calc Pharmacy 67.7 ml/min; Glucose 85.0 mg/dl (70-99(Fasting)); Potassium 3.5 mmol/L (3.5-5.1); Sodium 142.0 mmol/L (136-145)
--- NOTE | 2024-09-23 09:30 | Discharge Summary ---
Discharge Summary Date of Service September 23, 2024 Principal Dx & Hospital Course #1 = Principal Diagnosis (1) Acute left flank pain: (2) Kidney stone on left side: (3) Hypothyroidism: (4) Type 2 diabetes mellitus with obesity: (5) Hypercholesterolemia: (6) Primary hypertension: Plan This is a 74-year-old female with hypertension, hyperlipidemia, diabetes mellitus type 2, hypothyroidism who presented with left sided flank pain 3 days ago [employer]. She was diagnosed with a left ureteral stone and was sent home on 09/18. However, she continued to have severe pain and started vomiting at home. She was admitted on 09/21 for L ureteral stone management. Day of Discharge 09/23: Mildly hypertensive 163/81 this morning; vitals otherwise stable. Patient reports she is in good spirits, and is ready to return home today. She reports she has 0 out of 10 pain on the left flank. No episodes of nausea or vomiting overnight. No fevers. Her only symptom is increased urinary frequency; she reports she has to get up and use the restroom every 20 to 30 minutes, but does report this may be due to IV fluids. She also reports intermittent blood in her urine. No pain with urination. No burning with ur ination. She is eating and drinking well. She had difficulty sleeping last night due to waking up regularly to use the bathroom. Overall though, no complaints, and reports she feels ready to be discharged home. ROS: Patient endorses increased urinary frequency and hematuria. Patient denies fever, chills, night sweats, dizziness/lightheadedness when getting up to use the bathroom, headache (resolved), chest pain, chest palpitations, SOB, cough, abdominal pain, N/V/D, changes in bowel habits, or numbness or tingling arms or legs. #Left ureteral stone A/P CT on 09/18 revealed a 4.5 mm obstructing left ureteral stone Some hydronephrosis seen Patient did not pass the stone despite conservative management for now with IV fluids, analgesics, tamsulosin, and Pyridium Urology consult appreciated Underwent cystoscopy and left ureteral stent insertion on 09/[address] Evans Patient has not required IV pain medications for 24 hours postoperatively She reports no pain on the morning of 09/23 (day of discharge) Will plan to send patient home on tamsulosin 0.4 mg p.o. HS for stent discomfort Plan for follow-up urology appointment for stent removal #Acute kidney injury - resolved Most likely prerenal due to dehydration from vomiting Obstructive uropathy is in the differential but thought to be less likely Hydrated and interval improvement seen Creatinine elevated 1.57 on 09/21 (baseline 0.8) Update: Creatinine has returned to baseline of 0.79 on 09/23 #Leukocytosis Most likely stress related Resolved Urinalysis does not suggest UTI #Hypertension Held olmesartan and indapamide in the setting of acute kidney injury Okay to resume on the morning of 09/24 Continue diltiazem 240 mg #Hyperlipidemia Continue statin #Diabetes mellitus type 2 Resume home medications upon discharge #Hypothyroidism Continue Synthroid Disposition: Discharge home Notes For Next Care Provider Patient was admitted from 09/21 - 09/23 for a 4.5 mm obstructing left kidney stone. She underwent cystoscopy and left ureteral stent placement with Dr. Evans on 09/22. She reported no pain following the procedure. She still does endorse hematuria at time of discharge; Hgb is 11.2 at time of discharge; recommend to follow-up CBC prior to transitional care appointment. Her HAZEL has resolved and creatinine is 0.79 at time of discharge; recommend follow-up BMP prior to transitional care appointment. We will also be discharging her on tamsulosin 0.4 mg HS to help with any stent discomfort Patient will require event follow-up with urology in 2 to 3 weeks for stent removal. Admission HPI Per Admitting Provider This is a 74-year-old female with hypertension, hyperlipidemia, diabetes mellitus type 2, obesity, hypothyroidism who presented with left flank pain. The patient presented to the ER 3 days ago and was found to have a 4 mm mid ureteral stone with some hydronephrosis. She was discharged to home and was advised to drink plenty of fluids and use [id number] pain medications. But in the past 3 days, her symptoms have not improved rather she started vomiting over the past 24 hours and was unable to keep anything down. She does presented back to the emergency room. Today her white count is slightly elevated 14,000 and her creatinine is slightly elevated at 1.57. I was asked to admit this patient for IV hydration and pain management for left ureteral stone. She received IV morphine before I had seen her in the emergency room. Her pain is much better controlled now. Admission Exam Per Admitting Provider General: Awake, conversant Heart: S1, S2/regular rate and rhythm, no murmur rubs or gallops Lungs: Clear to auscultation bilaterally. Normal effort Abdomen: Soft/nontender/nondistended. No hepatosplenomegaly. No flank pain since she had received morphine Extremities: No clubbing/cyanosis. No edema Behavior: Appropriate, cooperative Discharge Exam General: no acute distress; sitting upright at bedside eating breakfast; pleasant affect; at bedside; non-toxic appearing; well-nourished; cooperative; SpO2 94% on RA HEENT: normocephalic, atraumatic; no scleral icterus; PERRLA; vision and hearing grossly intact Neck: supple; no lymphadenopathy; trachea midline Skin: warm, dry without signs of tenting; no cyanosis; no rashes, bruising, lesions, or erythema noted CV: chest wall NTP; RRR; S1/S2 normal; no murmurs/rubs/gallops; pulses intact and symmetric at radial, DP, and PT Lungs: no acute respiratory distress; symmetrical chest wall expansion; clear breath sounds across all lung ferreira w/o adventitious sounds; no wheezing ABD: Soft, NTP; BS present; no rebound/guarding; no distention : Negative suprapubic tenderness; negative left flank pain; negative CVA tenderness bilaterally; no rashes or bruising appreciated on the back or flanks MSK: no tics or fasciculations; no edema noted in the LEs b/l, nonerythematous Neuro: A&Ox3; normal mood and affect; fluent speech; no focal deficits; patient reports sensation is intact and symmetric in lower extremities bilaterally Discharge Plan Discharge Items Patient Disposition: Home - Self-Care Reason For Visit: L KIDNEY STONE Discharge Diagnosis: Left kidney stone Condition on Discharge: Fair Activity: As commented below Activity Comment: Gradually resume previous activity as tolerated Non-emergency contact: Primary Care Provider and Urologist Call non-emergency contact if: you have any medication questions, your symptoms worsen, your pain is not controlled, your pain is worsening and you have a fever Follow-up/Referrals: Elicia Marquez MD [Primary Care Provider] - Diet: Regular Addtl Attending Provider Instructions: You are hospitalized at [facility] from 09/21 - 09/23 for a 4.5 mm left-sided obstructing kidney stone. Initially, conservative measures were attempted for stone expulsion (including IV fluids, pain control, antinausea medications, and smooth muscle relaxants). After trial of these measures, you underwent a procedure called a cystoscopy where a left ureteral stent placement with Dr. Evans on 09/22. Following this procedure, you reported no discomfort or pain on the left side. Your white blood cell count remained normal, and your urinalysis did not indicate signs of infection; therefore, we do not believe you need antibiotics at this time for a UTI. While you exhibited a mild HAZEL on arrival (i.e. an "acute kidney injury"), your kidney function has returned to normal at time of discharge. Please continue to take tamsulosin 0.4 mg capsules at night for ureteral stent discomfort. Per request, we have sent a prescription refill to your pharmacy ([facility]). Please also plan to follow-up with your PCP in the next 1 to 2 weeks for a transitional care appointment. Prior to this appointment, it is recommended that you have blood work drawn which includes 2 tests called a "CBC" and "BMP". The CBC test is to look at your hemoglobin levels (due to reports of blood in your urine). The BMP is to assess your kidney function, which is normal at time of discharge. You are safe to restart certain medications that were held at time of admission (such as indapamide and olmesartan). However, given your acute kidney injury, we recommend that you avoid taking celecoxib until you follow-up with your PCP in 1 to 2 weeks for a repeat renal function test. If you develop any new or worsening symptoms, such as fever, chills, intractable left-sided flank pain, nausea, vomiting, chest pain, or trouble breathing, please return to the emergency department immediately. It was a pleasure taking care of you. Please reach out any questions or concerns. Sincerely, The hospital medicine team at [facility] Pending Studies at Discharge: No Stand-Alone Forms: My [facility] Medications and DC Order Prescriptions: New tamsulosin 0.4 mg Capsule 0.4 mg PO HS Qty: 21 0RF Rx Instructions: Take 1 capsule by mouth at bedtime Continued olmesartan 5 mg tablet 10 mg PO DAILY Qty: 180 3RF indapamide 1.25 mg tablet 1.25 mg PO DAILY Qty: 90 3RF atorvastatin 20 mg tablet 20 mg PO DAILY Qty: 90 3RF levothyroxine 100 mcg tablet 100 mcg PO DAILY Qty: 90 3RF dulaglutide 4.5 mg/0.5 mL pen injector 4.5 mg subcut Q7D Qty: 12 1RF cholecalciferol (vitamin D3) 25 mcg (1,000 unit) capsule 25 mcg PO DAILY Patient Comments: Unable to verify OTC meds at this date/time. B12 Active 1,000 mcg tablet,chewable 1,000 mcg PO DAILY Qty: 30 0RF Patient Comments: Unable to verify OTC meds at this date/time. ascorbic acid (vitamin C) 500 mg tablet 500 mg PO DAILY Patient Comments: Unable to verify OTC meds at this date/time. albuterol sulfate 90 mcg/actuation HFA aerosol inhaler 2 puff inhalation Q4H PRN (Reason: shortness of breath or wheezing) Qty: 8.5 3RF metformin 500 mg tablet extended release 24 hr 1,000 mg PO DAILY Qty: 180 3RF diltiazem HCl 240 mg capsule,extended release 24 hr 240 mg PO DAILY Qty: 90 3RF pantoprazole 20 mg tablet,delayed release (DR/EC) 20 mg PO DAILY Qty: 90 3RF oxycodone 5 mg tablet 5 mg PO Q6H PRN (Reason: pain) Qty: 15 0RF Held celecoxib 200 mg capsule 200 mg PO BID PRN (Reason: pain) Qty: 180 3RF Hold Instructions: Resume on 09/30/24. Hold until seen for PCP follow-up Discontinued tamsulosin [Flomax] 0.4 mg capsule 0.4 mg PO HS Qty: 20 0RF Discharge Orders: Discharge Order (Routine); Ordered 09/23/24 Ordered By: Chandler Lucas/Other Patient Handouts: Having a Ureteral Stent Admission Data Admit Date/Time: 09/22/24 11:23 Attending Provider: Raffi Figueroa Admit Provider: Ana Cristina Medeiros Primary Care Provider: Elicia Marquez Other Providers: Ana Cristina Medeiros; Bruno Evans Hospital Stay Data Consultations 09/21/24 10:13 ED Decision to Admit Stat 09/21/24 10:25 Consult Urology Routine Procedures Performed Operation Date: 09/22/24 08:00 Actual Procedures p Cystoscopy, Retrograde Pyelogram, Ureteral Stent Insertion-Left(Left) - Bruno Evans MD Diagnostic Imagining Performed 09/22/24 07:00 FL retrograde includes kub Routine Discharge Instructions Given to Patient (Per Discharging Provider) You are hospitalized at [facility] from 09/21 - 09/23 for a 4.5 mm left-sided obstructing kidney stone. Initially, conservative measures were attempted for stone expulsion (including IV fluids, pain control, antinausea medications, and smooth muscle relaxants). After trial of these measures, you underwent a procedure called a cystoscopy where a left ureteral stent placement with Dr. Evans on 09/22. Following this procedure, you reported no discomfort or pain on the left side. Your white blood cell count remained normal, and your urinalysis did not indicate signs of infection; therefore, we do not believe you need antibiotics at this time for a UTI. While you exhibited a mild HAZEL on arrival (i.e. an "acute kidney injury"), your kidney function has returned to normal at time of discharge. Please continue to take tamsulosin 0.4 mg capsules at night for ureteral stent discomfort. Per request, we have sent a prescription refill to your pharmacy ([facility]). Please also plan to follow-up with your PCP in the next 1 to 2 weeks for a transitional care appointment. Prior to this appointment, it is recommended that you have blood work drawn which includes 2 tests called a "CBC" and "BMP". The CBC test is to look at your hemoglobin levels (due to reports of blood in your urine). The BMP is to assess your kidney function, which is normal at time of discharge. You are safe to restart certain medications that were held at time of admission (such as indapamide and olmesartan). However, given your acute kidney injury, we recommend that you avoid taking celecoxib until you follow-up with your PCP in 1 to 2 weeks for a repeat renal function test. If you develop any new or worsening symptoms, such as fever, chills, intractable left-sided flank pain, nausea, vomiting, chest pain, or trouble breathing, please return to the emergency department immediately. It was a pleasure taking care of you. Please reach out any questions or concerns. Sincerely, The hospital medicine team at [facility] Total Time Total Time Spent Total Time Spent (In Minutes): 25 Coding [place] [address] IN/OBS DISCH 30 MIN/LESS Patient Type Established Medical Decision Making Moderate Complexity Diagnoses Acute left flank pain R10.9 Kidney stone on left side N20.0 Hypothyroidism E03.9 Type 2 diabetes mellitus with obesity E11.69; E66.9 Hypercholesterolemia E78.00 Primary hypertension I10
--- NOTE | 2024-09-23 10:51 | Urology Progress Note ---
Date of Service September 23, 2024 Assessment & Plan (1) Calculus of distal left ureter: (2) HAZEL (acute kidney injury): Plan: - Pt POD#1 s/p cystoscopy and left ureteral stent placement - Doing well, progressing as expected - Afebrile, lab work reviewed - creatinine improved to 0.79 today, WBC 8.57 - Tolerating left ureteral stent with minimal bother - Okay to d/c from perspective when medically stable - Recommend d/c with course of Tamsulosin, prn Pyridium for stent management - Expected clinical course reviewed, all questions answered - Will arrange outpatient follow-up with our service to set up definitive stone treatment - will sign off, please contact our service with any additional questions or concerns Admission and Anticipated Discharge Date Admission Date: September 22, 2024 Subjective Patient seen and examined at bedside Awake and sitting up in the bed Subjectively feeling well Voiding spontaneously, hematuria clearing postprocedure Creatinine improved to 0.79 today, previously 1.6 Review of Systems Constitutional: as per Subjective / HPI Genitourinary: as per Subjective / HPI Physical Exam Constitutional: well developed and well nourished; no acute distress Respiratory: normal respiratory effort; no respiratory distress and no labored breathing Gastrointestinal (Abdomen): Inspection/Auscultation: abdomen normal to inspection Musculoskeletal: Head/Neck/Chest: normocephalic Neurologic: moves all extremities and awake Psychiatric: Orientation: alert and oriented x 3 Results & Data Vital Signs (Past 12 Hours) Vital Signs Temp Pulse Pulse Resp BP Pulse Ox O2 Del Method 09/23/24 07:25 36.7 C 68 18 163/81 H 94 Room Air 09/23/24 02:51 36.7 C 56 L 16 133/87 95 Room Air 09/22/24 23:44 36.5 C 58 L 16 106/62 95 Room Air PG Care Time/CCT Total # of Minutes Spent Total Time Spent with Patient: Total time spent is greater than 50% in coordination of care (as documented) at patient's floor/unit and/or counseling patient: Coding Level of Care Code 48863 SUB INP/OBS CARE 03/23MIN Diagnoses Calculus of distal left ureter N20.1 HAZEL (acute kidney injury) N17.9
--- NOTE | 2024-09-24 13:02 | Anesthesiology Progress Note ---
Date of Service September 22, 2024 Anesthesia Post Procedure Pain Intensity Left Abdomen: Pain Intensity: 10 Head: Pain Intensity: 3 Transfer of Care Handoff Completed per policy Notes Mental Status: alert / awake / arousable Patient Amnestic to Procedure: Yes Nausea / Vomiting: adequately controlled Pain: adequately controlled Airway Patency, RR, SpO2: stable & adequate BP & HR: stable & adequate Hydration State: stable & adequate Anesthetic Complications: no major complications apparent and Pt Satisfied with anesthetic care
== END 2024-09-23 11:25 | disposition home or self-care (01) | DRG 660 ==
LOC: ED 08:29 → 3E 08:29 → SUATTDRO 09-22 11:23